=== PATIENT | male | born 1930 | race Caucasian/White ===

== ENCOUNTER 2017-12-06 23:59 | Inpatient (IN) ==
[2017-12-07] MEDS ORDERED: Post-op Orders (for Pharmacy) OTHER ONE (02:24)
[2017-12-07] MEDS ORDERED: Bisacodyl 10 MG Supp RECTAL PRN (02:24)
[2017-12-07] MEDS ORDERED: Naloxone Inj 0.4 MG/ML Vial IV.PUSH PRN (02:24)
--- NOTE | 2017-12-07 02:37 | ED ---
HPI General Chief Complaint: Fall Stated Complaint: Neck Injury/Transfer from [facility] Time Seen by Provider: 12/07/17 00:52 History of Present Illness HPI Narrative: 87 yo male from [facility] with C6 and hip fracture s/p fall at home. Patient reports falling Friday (today is Friday). He apparently was on the ground for the entire time, stating that his was unable to help him up but she brought him food and drink. Patient was seen at [facility] and transferred here. accepting physician is Dr Chavez. Related Data Home Medications Medication Instructions Recorded Confirmed clorazepate dipotassium 3.75 mg PO DAILY 12/07/17 12/07/17 ferrous sulfate [iron] 325 mg PO DAILY 12/07/17 12/07/17 hydrochlorothiazide 25 mg PO DAILY 12/07/17 12/07/17 latanoprost 1 drop EACH EYE DAILY 12/07/17 12/07/17 levothyroxine 75 mg PO DAILY 12/07/17 12/07/17 metoprolol tartrate 100 mg PO DAILY 12/07/17 12/07/17 simvastatin 10 mg PO DAILY 12/07/17 12/07/17 triamterene-hydrochlorothiazid 1 tab PO DAILY 12/07/17 12/07/17 warfarin 5 mg PO DAILY 12/07/17 12/07/17 Allergies Allergy/AdvReac Type Severity Reaction Status Date / Time No Known Allergies Allergy Verified 12/07/17 01:10 Review of Systems ROS: all other systems reviewed are negative [facility] Medical History Medical History Atrial fibrillation (Acute) Cataract (Acute) Hyperlipidemia (Acute) Hypothyroidism (Acute) Macular degeneration (Acute) Surgical History Surgical History H/O hernia repair (Acute) History of tonsillectomy (Acute) Family History Family History Other Family history of acute myocardial infarction Social History Social History Substance History: No History of Abuse Second Hand Smoke Exposure: No Smoking Status: Never smoker How Often Do You Have a Drink Containing Alcohol: 2 to 4 times a month Recent Travel in [facility] within the Last 8 Weeks: No Recent Out of Country Travel within the Last 8 Weeks: No Immunization History Tetanus Immunization: Unsure Hx Influenza Vaccine This Season: No Exam Narrative Exam Narrative: GENERAL: 87-year-old male in no distress but ill-appearing and volume depleted SKIN: Focused skin assessment warm/dry. HEAD: Atraumatic. Normocephalic. EYES: Pupils equal and round. No scleral icterus. No injection or drainage. ENT: No nasal bleeding or discharge. Mucous membranes dry and cracked. NECK: Patient was collared prehospital for previously diagnosed C6 fracture CARDIOVASCULAR: Regular rate and rhythm. No murmur appreciated. RESPIRATORY: No accessory muscle use. Clear to auscultation. Breath sounds equal bilaterally. GASTROINTESTINAL: Abdomen soft, non-tender, nondistended. Hepatic and splenic margins not palpable. MUSCULOSKELETAL: Obvious deformity to the right lower extremity he is shortened and externally rotated Course Initial Documented Vital Signs Temperature 98.4 F 12/07/17 01:06 Pulse Rate 63 12/07/17 01:06 Respiratory Rate 20 12/07/17 01:06 Blood Pressure 113/56 L 12/07/17 01:06 Pulse Oximetry 96 12/07/17 01:06 Last Documented Vital Signs Temperature 97.5 F L 12/08/17 04:00 Pulse Rate 48 L 12/08/17 04:00 Respiratory Rate 21 12/08/17 04:00 Blood Pressure 112/54 L 12/08/17 04:00 Pulse Oximetry 98 12/08/17 04:00 Medical Decision Making MDM Narrative Medical decision making narrative: Patient was seen and evaluated in the emergency department. He was accepted by Dr. Pearson and admitted to the trauma service. Lab Data Result diagrams: 12/08/17 04:39 12/07/17 13:24 Lab Results 12/07/17 12/07/17 12/07/17 Range/Units 13:24 13:24 13:24 WBC 13.6 H (4.0-11.0) th/mm3 RBC 4.12 L (4.50-5.90) mil/mm3 Hgb 12.0 L (13.0-17.0) gm/dL Hct 37.2 L (39.0-51.0) % MCV 90.3 (80.0-100.0) fL MCH 29.1 (27.0-34.0) pg MCHC 32.3 (32.0-36.0) % RDW 17.8 H (11.6-17.2) % Plt Count 449 (150-450) th/mm3 MPV 9.1 (7.0-11.0) fL Neut % (Auto) 89.9 H (16.0-70.0) % Lymph % (Auto) 1.5 L (9.0-44.0) % [place] % (Auto) 8.3 H (0.0-8.0) % Eos % (Auto) 0.1 (0.0-4.0) % Baso % (Auto) 0.2 (0.0-2.0) % Neut # (Auto) 12.2 H (1.8-7.7) th/mm3 Lymph # (Auto) 0.2 L (1.0-4.8) th/mm3 [place] # (Auto) 1.1 H (0.0-0.9) th/mm3 Eos # (Auto) 0.0 (0.0-0.4) th/mm3 Baso # (Auto) 0.0 (0.0-0.2) th/mm3 WBC Differential . Differential Comment Auto diff final Sodium 140 (136-145) meq/L Potassium 3.6 (3.5-5.1) meq/L Chloride 103 (98-107) meq/L Carbon Dioxide 27.9 (21.0-32.0) meq/L Anion Gap 9 (5-15) meq/L BUN 68 H (7-18) mg/dL Creatinine 1.57 H (0.60-1.30) mg/dL Estimated GFR 42 L (>89) mL/min Random Glucose 87 (74-106) mg/dL Calcium 8.3 L (8.5-10.1) mg/dL Total Creatine Kinase 229 (39-308) U/L 12/08/17 Range/Units 04:39 WBC 12.8 H (4.0-11.0) th/mm3 RBC 4.17 L (4.50-5.90) mil/mm3 Hgb 12.3 L (13.0-17.0) gm/dL Hct 37.7 L (39.0-51.0) % MCV 90.4 (80.0-100.0) fL MCH 29.5 (27.0-34.0) pg MCHC 32.6 (32.0-36.0) % RDW 17.6 H (11.6-17.2) % Plt Count 408 (150-450) th/mm3 MPV 9.2 (7.0-11.0) fL Neut % (Auto) 91.7 H (16.0-70.0) % Lymph % (Auto) 2.5 L (9.0-44.0) % [place] % (Auto) 5.3 (0.0-8.0) % Eos % (Auto) 0.4 (0.0-4.0) % Baso % (Auto) 0.1 (0.0-2.0) % Neut # (Auto) 11.8 H (1.8-7.7) th/mm3 Lymph # (Auto) 0.3 L (1.0-4.8) th/mm3 [place] # (Auto) 0.7 (0.0-0.9) th/mm3 Eos # (Auto) 0.1 (0.0-0.4) th/mm3 Baso # (Auto) 0.0 (0.0-0.2) th/mm3 WBC Differential . Differential Comment Auto diff final Sodium (136-145) meq/L Potassium (3.5-5.1) meq/L Chloride (98-107) meq/L Carbon Dioxide (21.0-32.0) meq/L Anion Gap (5-15) meq/L BUN (7-18) mg/dL Creatinine (0.60-1.30) mg/dL Estimated GFR (>89) mL/min Random Glucose (74-106) mg/dL Calcium (8.5-10.1) mg/dL Total Creatine Kinase (39-308) U/L Imaging Data Radiologist's impression: Chest X-Ray 12/07/17 00:00 CONCLUSION: Small right basilar opacity likely representing pleural effusion with airspace consolidation. Discharge Plan Discharge Disposition Patient Disposition: 30 Still Patient Discharge Condition Condition: Stable Discharge Details Diagnosis: Rhabdomyolysis, Closed hip fracture, Dehydration Physicians Team ED Provider: Betty Parker Primary Care Provider: NON STAFF,PROVIDER Attending Provider: Jason Chavez Other Providers: ; Willie Bateman ; Kaushal Soliz ; Rudi Ortez ; Johann Silverman ; [employer] ; Kaleb Pang ; Farida Godinez ; Nba Swain ; Terra Booker ; Jason Chavez ; Maci Omer ; Shay Vincent Discharge Interventions Interventions: ED Discharge Assessment Last Done: 12/07/17 03:38 Vital Signs Last Done: 12/07/17 02:20 Status ED Status: Left Department Discharge Information Discharge Date/Time: 12/07/17 03:38
--- NOTE | 2017-12-07 03:11 | XR ---
EXAM DATE: 12/07/2017 2:59 AM EDT AGE/SEX: 87 years / Male INDICATIONS: Patient fell earlier today. Evaluate for pneumonia, pneumothorax or communicable diseas e. Pre op for hip surgery. CLINICAL DATA: This is the patient's initial encounter. Patient reports that signs and symptoms have been present for 1 day and indicates a pain score of 0/10. MEDICAL/SURGICAL HISTORY: None. None. COMPARISON: No prior exams available for comparison. FINDINGS: 2 AP views of the chest demonstrate a normal-sized cardiac silhouette with calcification of the aorta . Lungs are underinflated. There is a small right basilar pleural-parenchymal opacity. No pneumothora x is visualized. The bones and soft tissues demonstrate no acute abnormality. CONCLUSION: Small right basilar opacity likely representing pleural effusion with airspace consolidation. Electronically signed by: Orlando Handy MD 12/07/2017 3:09 AM EDT
[2017-12-07] MEDS: Sod Chloride 0.9% Inj 1,000 ML IV.CONT SCH ×2 (04:04→13:22)
[2017-12-07] MEDS: ceFAZolin Inj 1,000 MG in Sodium Chlor 0.9% Inj 100 ML IV.SIG SCH ×3 (05:43→19:47)
[2017-12-07] MEDS: Senna/Docusate Sodium 8.6/50 MG Tablet PO SCH ×2 (09:24→22:16)
--- NOTE | 2017-12-07 09:31 | P.CON ---
History of Present Illness Consult date: 12/07/17 Requesting Physician: Jason Chavez Reason for Consult: Medical Management Primary Care Provider: PROVIDER NON STAFF Family Provider: PROVIDER NON STAFF Chief Complaint: Transfer from [facility] History of Present Illness: This is a pleasant 87 y/o male transferred from [facility] after status post fall he was at home on the floor fed by his , and he got a pillow and was laying there hoping for the best to happen, until decided to call 911 he has multiple ecchymosis on both arms and legs, has Sacral ulcer II, Elbows, right heel, both bottom areas on his buttocks II, awaiting for evaluation by spine specialist, has Not found Lumbar 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 Doctor Jason Chavez also present, Orthopedic surgery has been consulted due to for Mildly displaced transcervical Right hip fracture. at this time also Swallow test is been conducted. Discussed with nurse Miss Mak. Review of Systems All other systems reviewed negative except as stated in HPI PMFSH - History History Provided By: Patient - Medical History Medical History: Medical History (Last Updated 12/07/17 @ 09:45 by Kaushal Soliz MD) Atrial fibrillation Cataract Hyperlipidemia Hypothyroidism - Surgical History Surgical History: Surgical History (Last Updated 12/07/17 @ 09:45 by Kaushal Soliz MD) H/O hernia repair History of tonsillectomy - Family History Family History: Family History (Last Updated 12/07/17 @ 09:45 by aKushal Soliz MD) Other Family history of acute myocardial infarction - Tobacco History Second Hand Smoke Exposure: No Tobacco Use In Past 30 Days: No Smoking Status: Never smoker - Alcohol History How Often Do You Have a Drink Containing Alcohol: Never - Substance Use History Substance History: No History of Abuse - Travel History Recent Travel in the [place] Within the Last 8 Weeks: No Recent Travel Out of the Country Within the Last 8 Weeks: No - Immunization History Tetanus Immunization: Unsure Hx Influenza Vaccine This Season: No Medications and Allergies Active Medications: Active Medications Al Hydroxide/Mg Hydroxide (Milk Of Magnesia Liq) 30 ml PO Q12H PRN PRN Reason: Mild Constipation Bisacodyl (Dulcolax Supp) 10 mg RECTAL DAILY PRN PRN Reason: SEVERE CONSITIPATION Enoxaparin Sodium (Lovenox Inj) 40 mg SQ Q24H [facility] Fentanyl (Duragesic 25 Mcg Patch.72hr) 1 patch T-DERMAL Q3D [facility] Last Admin: 12/07/17 04:01 Dose: Not Given Cefazolin Sodium 1,000 mg/ (Sodium Chloride) 100 mls @ 200 mls/hr IV.SIG Q8H [facility] Stop: 12/07/17 20:29 Last Infusion: 12/07/17 06:30 Dose: Infused Metronidazole/Sodium Chloride (Flagyl 500 Mg Inj) 100 mls @ 200 mls/hr IV.SIG Q8H [facility] Stop: 12/07/17 21:29 Last Infusion: 12/07/17 06:40 Dose: Infused Sodium Chloride (Ns Inj) 1,000 mls @ 100 mls/hr IV.CONT .Q10H [facility] Last Admin: 12/07/17 04:04 Dose: 100 mls/hr Lactulose (Lactulose Liq) 30 ml PO DAILY PRN PRN Reason: SEVERE CONSITIPATION Naloxone HCl (Narcan Inj) 0.4 mg IV.PUSH UNSCH PRN PRN Reason: SEE LABEL COMMENTS Ondansetron HCl (Zofran Inj) 4 mg IV.PUSH Q6H PRN PRN Reason: NAUSEA OR VOMITING Oxycodone/Acetaminophen (Percocet 5/325 Mg) 1 tab PO Q6H PRN PRN Reason: PAIN SCALE 3 TO 5 Last Admin: 12/07/17 03:59 Dose: 1 tab Pantoprazole Sodium (Protonix) 40 mg PO DAILY [facility] Last Admin: 12/07/17 09:24 Dose: 40 mg Patch Removal (Remove Old Patch) 1 each T-DERMAL Q3D [facility] Senna/Docusate Sodium (Kiara-Colace) 1 tab PO BID [facility] Last Admin: 12/07/17 09:24 Dose: 1 tab Sennosides (Senokot) 17.2 mg PO Q12H PRN PRN Reason: Moderate Constipation Allergies Allergy/AdvReac Type Severity Reaction Status Date / Time No Known Allergies Allergy Verified 12/07/17 01:10 Home Medications Medication Instructions Recorded Confirmed Type clorazepate dipotassium 3.75 mg PO DAILY 12/07/17 12/07/17 History ferrous sulfate [iron] 325 mg PO DAILY 12/07/17 12/07/17 History hydrochlorothiazide 25 mg PO DAILY 12/07/17 12/07/17 History latanoprost 1 drop EACH EYE DAILY 12/07/17 12/07/17 History levothyroxine 75 mg PO DAILY 12/07/17 12/07/17 History metoprolol tartrate 100 mg PO DAILY 12/07/17 12/07/17 History simvastatin 10 mg PO DAILY 12/07/17 12/07/17 History warfarin 5 mg PO DAILY 12/07/17 12/07/17 History Physical Exam Vital signs: Vital Signs 12/07/17 01:06 12/07/17 02:20 12/07/17 04:00 Temperature 98.4 F 97.8 F Pulse Rate 63 51 L 56 L Respiratory Rate 20 16 16 Blood Pressure 113/56 L 117/56 L 107/53 L Pulse Oximetry 96 97 98 Intake & Output 12/06/17 12/07/17 12/07/17 18:59 06:59 18:59 Intake Total 200 / 200 Balance 200 / 200 Weight 67.5 kg Intake: IV 200 / 200 Ancef Inj 1,000 MG In NS Inj 100 / 100 100 ML @ 200 mls/hr IV.SIG Q8H [facility] Rx#:[id number] Flagyl 500 MG Inj 100 ML @ 200 100 / 100 mls/hr IV.SIG Q8H [facility] Rx#: [id number] Other: # Voids 1 Weight On Admission 67.5 kg Narrative: GENERAL: Well-developed patient, in no apparent distress. alert and oriented x 3 NECK: Hard Collar in place CARDIOVASCULAR: Irregular rate and rhythm . no murmur. RESPIRATORY: Clear to auscultation. Breath sounds equal bilaterally. No wheezes , rales, or rhonchi. GASTROINTESTINAL: Abdomen soft, non-tender, nondistended. Normal active bowel sounds MUSCULOSKELETAL: Extremities without clubbing, cyanosis, or edema. NEURO: Alert & Oriented x4 to person, place, time, situation. Moves all ext x4 SKIN: multiple skin ecchymosis on all extremities, ulcer to buttocks, sacral area, right heel and elbows. Assessment and Plan - Plan 1. Status post fall with secondary Horizontally oriented comminuted fracture extending on the superior aspect of the C6 vertebral body, disruption of the anterior longitudinal ligament and interspinous ligament injury, at this time Neurosurgery specialist [place] to see the patient reviewing imaging studies performed Doctor Shay Vincent. Also Present at this time Doctor Jason Chavez, Orthopedic surgery has been consulted due to for Mildly displaced transcervical Right hip fracture. 2. Hypothyroidism to continue Hormonal therapy 3. Atrial Fibrillation on Warfarin at this time on hold due to probable procedure, rate is controlled and Bradycardia, will continue Beta Silverio with recommendations. 4. Hyperlipidemia continue Home medicines. DVT prophylaxis with SCDs awaiting for final surgical disposition. Code Status: Full code Discussed Condition With: Discussed with Patient Discussed with Speech therapy Discussed with Neurosurgery specialist Doctor Shay Vincent. Discussed with Attending physician Doctor Jason Chavez. Discharge Planning: Once cleared by specialists.
--- NOTE | 2017-12-07 10:29 | P.CONOP ---
[facility] Orthopedics Consult Note - HPI Consult date: 12/07/17 Consult reason: fracture Chief complaint: hip fracture, c6 fracture, rhabdomyolysis, JOHN Narrative: This is a pleasant 87 y/o male transferred from [facility] after status post fall he was at home on the floor found by his . Patient was transferred with C6 fracture along with right hip fracture. Clinically, patient is awake and complains of mild neck discomfort and right hip pain with movement. He denies any other extremity injury. He does report he is currently on Coumadin. INR at [facility] was 5.1. Of note, pt has Sacral ulcer stage II, Elbows, right heel, both bottom areas on his buttocks II, awaiting for evaluation by grant specialist Review of Systems Denies fevers, chills, nausea, vomiting, chest pain, abdominal pain, throat pain. Reports mild neck discomfort. Denies any weakness, numbness or tingling that is new. Denies any change in urination. Reports right hip pain with movement. Denies rash or anxiety. [facility] - History History Provided By: Patient - Medical History Medical History: Medical History (Last Updated 12/07/17 @ 09:45 by Kaushal Soliz MD) Atrial fibrillation Cataract Hyperlipidemia Hypothyroidism - Surgical History Surgical History: Surgical History (Last Updated 12/07/17 @ 09:45 by Kaushal Soliz MD) H/O hernia repair History of tonsillectomy - Family History Family History: Family History (Last Updated 12/07/17 @ 09:45 by Kaushal Soliz MD) Other Family history of acute myocardial infarction - Tobacco History Second Hand Smoke Exposure: No Tobacco Use In Past 30 Days: No Smoking Status: Never smoker - Alcohol History How Often Do You Have a Drink Containing Alcohol: Never - Substance Use History Substance History: No History of Abuse - Travel History Recent Travel in the [place] Within the Last 8 Weeks: No Recent Travel Out of the Country Within the Last 8 Weeks: No - Immunization History Tetanus Immunization: Unsure Hx Influenza Vaccine This Season: No Medications and Allergies Active Medications: Active Medications Al Hydroxide/Mg Hydroxide (Milk Of Magnmarci Liq) 30 ml PO Q12H PRN PRN Reason: Mild Constipation Bisacodyl (Dulcolax Supp) 10 mg RECTAL DAILY PRN PRN Reason: SEVERE CONSITIPATION Cetirizine HCl (Zyrtec) 10 mg PO BID [facility] Enoxaparin Sodium (Lovenox Inj) 40 mg SQ Q24H [facility] Cefazolin Sodium 1,000 mg/ (Sodium Chloride) 100 mls @ 200 mls/hr IV.SIG Q8H [facility] Stop: 12/07/17 20:29 Last Infusion: 12/07/17 06:30 Dose: Infused Metronidazole/Sodium Chloride (Flagyl 500 Mg Inj) 100 mls @ 200 mls/hr IV.SIG Q8H [facility] Stop: 12/07/17 21:29 Last Infusion: 12/07/17 06:40 Dose: Infused Sodium Chloride (Ns Inj) 1,000 mls @ 100 mls/hr IV.CONT .Q10H [facility] Last Admin: 12/07/17 04:04 Dose: 100 mls/hr Lactulose (Lactulose Liq) 30 ml PO DAILY PRN PRN Reason: SEVERE CONSITIPATION Naloxone HCl (Narcan Inj) 0.4 mg IV.PUSH UNSCH PRN PRN Reason: SEE LABEL COMMENTS Ondansetron HCl (Zofran Inj) 4 mg IV.PUSH Q6H PRN PRN Reason: NAUSEA OR VOMITING Oxycodone/Acetaminophen (Percocet 5/325 Mg) 1 tab PO Q6H PRN PRN Reason: PAIN SCALE 3 TO 5 Last Admin: 12/07/17 03:59 Dose: 1 tab Pantoprazole Sodium (Protonix) 40 mg PO DAILY [facility] Last Admin: 12/07/17 09:24 Dose: 40 mg Senna/Docusate Sodium (Kiara-Colace) 1 tab PO BID [facility] Last Admin: 12/07/17 09:24 Dose: 1 tab Sennosides (Senokot) 17.2 mg PO Q12H PRN PRN Reason: Moderate Constipation Allergies Allergy/AdvReac Type Severity Reaction Status Date / Time No Known Allergies Allergy Verified 12/07/17 01:10 Home Medications Medication Instructions Recorded Confirmed Type levothyroxine See Label Instructions .ROUTE 12/07/17 12/07/17 History .COMPLEX metoprolol tartrate See Label Instructions .ROUTE 12/07/17 12/07/17 History .COMPLEX simvastatin See Label Instructions .ROUTE 12/07/17 12/07/17 History .COMPLEX warfarin 5 mg PO DAILY 12/07/17 12/07/17 History Exam Vital signs: Vital Signs 12/07/17 01:06 12/07/17 02:20 12/07/17 04:00 Temperature 98.4 F 97.8 F Pulse Rate 63 51 L 56 L Respiratory Rate 20 16 16 Blood Pressure 113/56 L 117/56 L 107/53 L Pulse Oximetry 96 97 98 Intake & Output 12/06/17 12/07/17 12/07/17 18:59 06:59 18:59 Intake Total 200 / 200 Balance 200 / 200 Weight 67.5 kg Intake: IV 200 / 200 Ancef Inj 1,000 MG In NS Inj 100 / 100 100 ML @ 200 mls/hr IV.SIG Q8H [facility] Rx#:[id number] Flagyl 500 MG Inj 100 ML @ 200 100 / 100 mls/hr IV.SIG Q8H [facility] Rx#: [id number] Other: # Voids 1 Weight On Admission 67.5 kg Narrative: Awake, alert, no acute distress C-collar in place. Pupils equal No JVD Moist mucous membranes Regular rate Soft nontender abdomen Nonlabored respirations Right lower extremity: Positive logroll. Unable to assess hip and knee range of motion due to pain. Patient demonstrates positive EHL, FHL, dorsiflexion and plantarflexion. Sensation appears grossly intact. Brisk cap refill. Bilateral upper extremities and left lower extremity: No tenderness palpation or visible deformities. Full active range of motion and strength throughout. Sensation intact. Brisk cap refill. No rash Normal affect Results - Diagnostic results Imaging: Impressions Chest X-Ray 12/07/17 00:00 CONCLUSION: Small right basilar opacity likely representing pleural effusion with airspace consolidation. Assessment and Plan - Assessment and Plan 87-year-old male transferred from [facility] with C6 fracture and a right transcervical femoral neck fracture At this time, patient has been seen and evaluated by neurosurgery. It appears plan is for nonoperative intervention in a c-collar. I reviewed radiographs with the patient in regards to his right hip fracture. At this time I would recommend surgical intervention in the form of a right hip hemiarthroplasty. Risks of surgery including but not limited to: Infection, hardware malposition or failure, periprosthetic fracture, hip instability and/or dislocation, persistent hip pain and/or weakness, possible need for further surgery, leg length discrepancy, and other unforeseen comp occasions were all discussed with the patient. At this time, he has consented to the above-mentioned procedure. Plan will be for surgery likely in the next 1-2 days as his INR was 5.1 overnight. Patient will be n.p.o. at midnight for possible surgery tomorrow. Neurosurgery has seen and evaluated the patient. Plan is for nonoperative treatment for his neck injury.
--- NOTE | 2017-12-07 12:29 | P.CONNS ---
History of Present Illness Primary Care Provider: PROVIDER NON STAFF Family Provider: PROVIDER NON STAFF Chief Complaint: C6 vertebral body fracture History of Present Illness: Mr. Henderson is an 87 y/o male on coumadin for atrial fibrillation who had a fall on 12/02. He remained laying on the floor, unable to ambulate for several days until his called EMS. He was transported to an outside hospital where CT of the cervical spine demonstrated a horizontal comminuted fracture through the C6 vertebral body and a right hip fracture. He was transferred here for further evaluation and management. Mr. Henderson endorses moderate neck pain. Denies numbness, paresthesias, weakness , bowel or bladder incontinence. Non-smoker. Review of Systems All other systems reviewed negative except as stated in HPI PMFSH - History History Provided By: Patient - Medical History Medical History: Medical History (Last Updated 12/07/17 @ 09:45 by Kaushal Soliz MD) Atrial fibrillation Cataract Hyperlipidemia Hypothyroidism - Surgical History Surgical History: Surgical History (Last Updated 12/07/17 @ 09:45 by Kaushal Soliz MD) H/O hernia repair History of tonsillectomy - Family History Family History: Family History (Last Updated 12/07/17 @ 09:45 by Kaushal Soliz MD) Other Family history of acute myocardial infarction - Tobacco History Second Hand Smoke Exposure: No Tobacco Use In Past 30 Days: No Smoking Status: Never smoker - Alcohol History How Often Do You Have a Drink Containing Alcohol: Never - Substance Use History Substance History: No History of Abuse - Travel History Recent Travel in the [place] Within the Last 8 Weeks: No Recent Travel Out of the Country Within the Last 8 Weeks: No - Immunization History Tetanus Immunization: Unsure Hx Influenza Vaccine This Season: No Medications and Allergies Active Medications: Active Medications Al Hydroxide/Mg Hydroxide (Milk Of Collins Liq) 30 ml PO Q12H PRN PRN Reason: Mild Constipation Bisacodyl (Dulcolax Supp) 10 mg RECTAL DAILY PRN PRN Reason: SEVERE CONSITIPATION Cetirizine HCl (Zyrtec) 10 mg PO BID KETTY Enoxaparin Sodium (Lovenox Inj) 40 mg SQ Q24H KETTY Cefazolin Sodium 1,000 mg/ (Sodium Chloride) 100 mls @ 200 mls/hr IV.SIG Q8H KETTY Stop: 12/07/17 20:29 Last Infusion: 12/07/17 06:30 Dose: Infused Metronidazole/Sodium Chloride (Flagyl 500 Mg Inj) 100 mls @ 200 mls/hr IV.SIG Q8H [facility] Stop: 12/07/17 21:29 Last Infusion: 12/07/17 06:40 Dose: Infused Sodium Chloride (Ns Inj) 1,000 mls @ 100 mls/hr IV.CONT .Q10H [facility] Last Admin: 12/07/17 04:04 Dose: 100 mls/hr Lactulose (Lactulose Liq) 30 ml PO DAILY PRN PRN Reason: SEVERE CONSITIPATION Naloxone HCl (Narcan Inj) 0.4 mg IV.PUSH UNSCH PRN PRN Reason: SEE LABEL COMMENTS Ondansetron HCl (Zofran Inj) 4 mg IV.PUSH Q6H PRN PRN Reason: NAUSEA OR VOMITING Oxycodone/Acetaminophen (Percocet 5/325 Mg) 1 tab PO Q6H PRN PRN Reason: PAIN SCALE 3 TO 5 Last Admin: 12/07/17 03:59 Dose: 1 tab Oxycodone/Acetaminophen (Percocet 7.5/325 Mg) 1 tab PO Q4H PRN PRN Reason: PAIN SCALE 6 TO 10 Pantoprazole Sodium (Protonix) 40 mg PO DAILY [facility] Last Admin: 12/07/17 09:24 Dose: 40 mg Senna/Docusate Sodium (Kiara-Colace) 1 tab PO BID [facility] Last Admin: 12/07/17 09:24 Dose: 1 tab Sennosides (Senokot) 17.2 mg PO Q12H PRN PRN Reason: Moderate Constipation Allergies Allergy/AdvReac Type Severity Reaction Status Date / Time No Known Allergies Allergy Verified 12/07/17 01:10 Home Medications Medication Instructions Recorded Confirmed Type levothyroxine See Label Instructions .ROUTE 12/07/17 12/07/17 History .COMPLEX metoprolol tartrate See Label Instructions .ROUTE 12/07/17 12/07/17 History .COMPLEX simvastatin See Label Instructions .ROUTE 12/07/17 12/07/17 History .COMPLEX warfarin 5 mg PO DAILY 12/07/17 12/07/17 History Exam Vital signs: Vital Signs 12/07/17 01:06 12/07/17 02:20 12/07/17 04:00 Temperature 98.4 F 97.8 F Pulse Rate 63 51 L 56 L Respiratory Rate 20 16 16 Blood Pressure 113/56 L 117/56 L 107/53 L Pulse Oximetry 96 97 98 12/07/17 08:00 12/07/17 10:00 Temperature 97.6 F Pulse Rate 44 L 56 L Respiratory Rate 19 Blood Pressure 95/51 L Pulse Oximetry 100 Intake & Output 12/06/17 12/07/17 12/07/17 18:59 06:59 18:59 Intake Total 200 / 200 Balance 200 / 200 Weight 67.5 kg Intake: IV 200 / 200 Ancef Inj 1,000 MG In NS Inj 100 / 100 100 ML @ 200 mls/hr IV.SIG Q8H KETTY Rx#:[id number] Flagyl 500 MG Inj 100 ML @ 200 100 / 100 mls/hr IV.SIG Q8H KETTY Rx#: [id number] Other: # Voids 1 Weight On Admission 67.5 kg - Constitutional no acute distress - Routine HEENT Exam Head: Present: normocephalic Eye: Present: EOMI, PERRL ENT: Present: mucous membranes moist - Routine Neck Exam Present: supple - Routine Chest/Breast/Axilla Exam Chest wall: Absent: tenderness - Routine Respiratory Exam Absent: respiratory distress - Routine Cardiovascular Exam Present: irregular rhythm - Routine Abdominal Exam Present: soft - Routine Extremities Exam Present: normal capillary refill - Routine Skin Exam Present: ecchymosis - Routine Neurological Exam Present: alert, oriented X3. Absent: sensory deficit 5/5 strength bilateral upper extremities, left lower extremity Right lower extremity pain limited due to hip fracture, anti-gravity distally Results - Diagnostic Findings Additional findings: CT cervical spine: Horizontal fracture through the C6 vertebral body. No evidence of involvement of the posterior elements. Chronic degenerative changes at multiple levels. CT head: no evidence of intracranial pathology. Assessment and Plan - Assessment (1) C6 cervical fracture Code(s): S12.500A - Unspecified displaced fracture of sixth cervical vertebra, initial encounter for closed fracture Status: Acute - Plan Mr. Henderson is an 87 y/o male who had a fall on 12/02. He is neurologically intact. He presented via EMS to an outside hospital on 12/06. Trauma evaluation demonstrates a two column injury C6 fracture. Plan: [place] J cervical collar at all times. He is a non-operative candidate from a neurosurgical perspective given his significant medical co-morbidities, advanced age, and need for prolonged general anesthesia for any neurosurgical operative intervention. No need for cervical MRI given that the results would not affect management and the acquisition would involve moving him more than is necessary. Orthopedic surgery may perform an intervention for his right hip fracture. Intraoperatively, he should be log rolled into position and his cervical spine should be maintained in neutral alignment with cervical collar. If possible, would avoid endotracheal intubation in order to minimize neck movement. His cervical fracture is unstable and could result in spinal cord injury with manipulation of his neck. (1) C6 cervical fracture Qualifiers: Encounter type: initial encounter Fracture type: closed Fracture morphology : other fracture Fracture alignment: displaced Qualified Code(s): S12.590A - Other displaced fracture of sixth cervical vertebra, initial encounter for closed fracture
--- NOTE | 2017-12-07 13:28 | P.PNCC ---
Subjective Brief History: 87-year-old male sustained a fall under unknown circumstances at home on Friday and was transferred to another hospital. I received a call requesting transfer the patient tolerate institution due to the nature of the injuries and patient arrives here in the early hours of the morning. Patient is awake and alert complaining about pain in his right hip and pelvis Patient is diagnosed with right hip fracture and C6 fracture He is neurologically intact Patient is admitted to ICU for further care details of this can be found in the H&P 24 Hour Review/Hospital Course: 12/07/2017 Patient is awake alert and oriented pain is well controlled Patient appears to be quite cachectic and weak Orthopedic consult is greatly appreciated Neurosurgery consult is greatly appreciated Patient scheduled to undergo pinning of the right hip while the see 6 fracture will be managed conservatively with a c-collar Patient will be a fdc placement Objective Vital Signs / I&O: Vital Signs 12/07/17 01:06 12/07/17 02:20 12/07/17 04:00 Temperature 98.4 F 97.8 F Pulse Rate 63 51 L 56 L Respiratory Rate 20 16 16 Blood Pressure 113/56 L 117/56 L 107/53 L Pulse Oximetry 96 97 98 12/07/17 08:00 12/07/17 10:00 Temperature 97.6 F Pulse Rate 44 L 56 L Respiratory Rate 19 Blood Pressure 95/51 L Pulse Oximetry 100 Intake & Output 12/06/17 12/07/17 12/07/17 18:59 06:59 18:59 Intake Total 200 / 200 1000 / 1000 Balance 200 / 200 1000 / 1000 Weight 67.5 kg Intake: IV 200 / 200 1000 / 1000 NS Inj 1,000 ML @ 100 mls/hr IV 1000 / 1000 .CONT .Q10H KETTY Rx#:[id number] Ancef Inj 1,000 MG In NS Inj 100 / 100 100 ML @ 200 mls/hr IV.SIG Q8H KETTY Rx#:[id number] Flagyl 500 MG Inj 100 ML @ 200 100 / 100 mls/hr IV.SIG Q8H KETTY Rx#: [id number] Other: # Voids 1 Weight On Admission 67.5 kg Imaging: Impressions Chest X-Ray 12/07/17 00:00 CONCLUSION: Small right basilar opacity likely representing pleural effusion with airspace consolidation. Disinhibition Score: 14.00 Aggression Score: 14.00 Lability Score: 14.00 Agitated Behavior Total Score: 14 - Exam PATENT PROSECUTION ATTORNEY: Awake alert oriented neurologically fully intact Hemodynamic/Cardiac: Hemodynamically patient is stable although he had several periods of bradycardia throughout the night with a heart rate dropped in the 30s 40s range without change in blood pressure Patient is in chronic atrial fibrillation and I do not know which medication he is on but clearly there must be some beta blockers and calcium channel blockers involved In addition patient is on Coumadin and INR PT is elevated consistent with over anticoagulation Clearly patient cannot go to the operating room for hip fixation until the PT/ INR comes down Pulmonary/Respiratory: Bilateral good breath sounds decreased over the both lung kent patient has severe advanced COPD and pulmonary cachexia with the chest wall musculature loss He generally appears to be cachectic and weak with significant functional decline Abdomen/GI Nutrition: Abdomen is soft patulous no masses are noted Renal/I&O: Renal function preserved Assessment and Plan Attestation: Critical care time 32 minutes
[2017-12-07 13:53] LABS: Baso % (Auto) 0.2 % (0.0-2.0); Eos % (Auto) 0.1 % (0.0-4.0); Hematocrit 37.2 % (39.0-51.0); Lymph # (Auto) 0.2 th/mm3 (1.0-4.8); Lymph % (Auto) 1.5 % (9.0-44.0); Mean Corpuscular HGB Conc 32.3 % (32.0-36.0); Mean Corpuscular Hemoglobin 29.1 pg (27.0-34.0); Mean Corpuscular Volume 90.3 fL (80.0-100.0); Mean Platelet Volume 9.1 fL (7.0-11.0); Mono # (Auto) 1.1 th/mm3 (0.0-0.9); Mono % (Auto) 8.3 % (0.0-8.0); Neut # (Auto) 12.2 th/mm3 (1.8-7.7); Neut % (Auto) 89.9 % (16.0-70.0); Platelet Count 449 th/mm3 (150-450); Red Blood Count 4.12 mil/mm3 (4.50-5.90); Red Cell Distribution Width 17.8 % (11.6-17.2); White Blood Count 13.6 th/mm3 (4.0-11.0)
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
[2017-12-07 14:14] LABS: Calcium 8.3 mg/dL (8.5-10.1); Carbon Dioxide 27.9 meq/L (21.0-32.0)
[2017-12-07 14:45] LABS: Potassium 3.6 meq/L (3.5-5.1)
[2017-12-07] MEDS ORDERED: Metoprolol Tartrate 25 MG Tablet PO SCH (21:00)
[2017-12-08] MEDS: Sod Chloride 0.9% Inj 1,000 ML IV.CONT SCH ×3 (00:30→20:20)
[2017-12-08] MEDS ORDERED: Enoxaparin Inj 40 MG/0.4 ML Syringe SQ SCH (01:00)
[2017-12-08 05:45] LABS: Baso % (Auto) 0.1 % (0.0-2.0); Eos # (Auto) 0.1 th/mm3 (0.0-0.4); Eos % (Auto) 0.4 % (0.0-4.0); Hematocrit 37.7 % (39.0-51.0); Hemoglobin 12.3 gm/dL (13.0-17.0); Lymph # (Auto) 0.3 th/mm3 (1.0-4.8); Lymph % (Auto) 2.5 % (9.0-44.0); Mean Corpuscular HGB Conc 32.6 % (32.0-36.0); Mean Corpuscular Hemoglobin 29.5 pg (27.0-34.0); Mean Corpuscular Volume 90.4 fL (80.0-100.0); Mean Platelet Volume 9.2 fL (7.0-11.0); Mono # (Auto) 0.7 th/mm3 (0.0-0.9); Mono % (Auto) 5.3 % (0.0-8.0); Neut # (Auto) 11.8 th/mm3 (1.8-7.7); Neut % (Auto) 91.7 % (16.0-70.0); Platelet Count 408 th/mm3 (150-450); Red Blood Count 4.17 mil/mm3 (4.50-5.90); Red Cell Distribution Width 17.6 % (11.6-17.2); White Blood Count 12.8 th/mm3 (4.0-11.0)
[2017-12-08 05:49] LABS: INR 5.7 Ratio; Prothrombin Time 57.3 sec (9.8-11.6)
[2017-12-08 06:12] LABS: Albumin 2.6 g/dL (3.4-5.0); Calcium 8.4 mg/dL (8.5-10.1); Carbon Dioxide 28.5 meq/L (21.0-32.0); Potassium 3.4 meq/L (3.5-5.1)
[2017-12-08 06:15] LABS: Total Protein 5.9 g/dL (6.4-8.2)
[2017-12-08] MEDS: Levothyroxine 75 MCG Tablet PO SCH (06:50)
--- NOTE | 2017-12-08 08:26 | P.PN ---
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 Doctor Jason Chavze also present, Orthopedic surgery has been consulted due to for Mildly displaced transcervical Right hip fracture. at this time also Swallow test is been conducted. 12/08: Seen in his bedroom and discussed with nurse called attention about his INR and orders from Orthopedic surgery already given to improve his INR for surgery. No nausea, vomit or diarrhea. Physical Exam Vital signs: Vital Signs 12/07/17 10:00 12/07/17 12:00 12/07/17 14:00 Temperature 97.9 F Pulse Rate 56 L 46 L 47 L Respiratory Rate 16 Blood Pressure 95/49 L Pulse Oximetry 98 12/07/17 16:00 12/07/17 18:00 12/07/17 20:00 Temperature 97.6 F 97.8 F Pulse Rate 50 L 58 L 66 Respiratory Rate 18 Blood Pressure 120/52 L 137/61 Pulse Oximetry 100 100 12/07/17 22:00 12/08/17 00:00 12/08/17 02:00 Temperature 97.5 F L Pulse Rate 51 L 54 L 55 L Respiratory Rate 21 Blood Pressure 100/53 L Pulse Oximetry 98 12/08/17 04:00 12/08/17 06:00 Temperature 97.5 F L Pulse Rate 48 L 74 Respiratory Rate 21 Blood Pressure 112/54 L Pulse Oximetry 98 Intake & Output 12/07/17 12/08/17 12/08/17 18:59 06:59 18:59 Intake Total 1320 / 1320 1525 / 1525 Output Total 750 / 750 450 / 450 Balance 570 / 570 1075 / 1075 Weight 69.4 kg Intake: IV 1200 / 1200 1045 / 1045 NS Inj 1,000 ML @ 100 mls/hr IV 1000 / 1000 845 / 845 .CONT .Q10H KETTY Rx#:[id number] Ancef Inj 1,000 MG In NS Inj 100 / 100 100 / 100 100 ML @ 200 mls/hr IV.SIG Q8H KETTY Rx#:[id number] Flagyl 500 MG Inj 100 ML @ 200 100 / 100 100 / 100 mls/hr IV.SIG Q8H KETTY Rx#: [id number] Oral 120 / 120 480 / 480 Output: Urine 450 / 450 Urine Amount (Catheter) 750 / 750 Condom 750 / 750 Other: # Bowel Movements 0 0 Narrative: GENERAL: Well-developed patient, in no apparent distress. alert and oriented x 3 NECK: Hard Collar in place CARDIOVASCULAR: Irregular rate and rhythm . no murmur. RESPIRATORY: Clear to auscultation. Breath sounds equal bilaterally. No wheezes , rales, or rhonchi. GASTROINTESTINAL: Abdomen soft, non-tender, nondistended. Normal active bowel sounds MUSCULOSKELETAL: Extremities without clubbing, cyanosis, or edema. NEURO: Alert & Oriented x4 to person, place, time, situation. Moves all ext x4 SKIN: multiple skin ecchymosis on all extremities, ulcer to buttocks, sacral area, right heel and elbows. - Urinary Catheter Management Condom Cath placed during this visit: no Results - Labs CBC & Chem 7: 12/09/17 03:40 12/09/17 03:40 Laboratory Results - last 24 hr 12/07/17 12/07/17 12/07/17 13:24 13:24 13:24 WBC 13.6 H RBC 4.12 L Hgb 12.0 L Hct 37.2 L MCV 90.3 MCH 29.1 MCHC 32.3 RDW 17.8 H Plt Count 449 MPV 9.1 Neut % (Auto) 89.9 H Lymph % (Auto) 1.5 L Barnwell % (Auto) 8.3 H Eos % (Auto) 0.1 Baso % (Auto) 0.2 Neut # (Auto) 12.2 H Lymph # (Auto) 0.2 L Barn[place] # (Auto) 1.1 H Eos # (Auto) 0.0 Baso # (Auto) 0.0 WBC Differential . Differential Comment Auto diff final PT INR Sodium 140 Potassium 3.6 Chloride 103 Carbon Dioxide 27.9 Anion Gap 9 BUN 68 H Creatinine 1.57 H Estimated GFR 42 L Random Glucose 87 Calcium 8.3 L Total Bilirubin Direct Bilirubin Indirect Bilirubin AST ALT Alkaline Phosphatase Total Creatine Kinase 229 Total Protein Albumin 12/08/17 12/08/17 12/08/17 04:39 04:39 04:39 WBC 12.8 H RBC 4.17 L Hgb 12.3 L Hct 37.7 L MCV 90.4 MCH 29.5 MCHC 32.6 RDW 17.6 H Plt Count 408 MPV 9.2 Neut % (Auto) 91.7 H Lymph % (Auto) 2.5 L Barn[place] % (Auto) 5.3 Eos % (Auto) 0.4 Baso % (Auto) 0.1 Neut # (Auto) 11.8 H Lymph # (Auto) 0.3 L Barn[place] # (Auto) 0.7 Eos # (Auto) 0.1 Baso # (Auto) 0.0 WBC Differential . Differential Comment Auto diff final PT 57.3 H INR 5.7 Sodium 144 Potassium 3.4 L Chloride 107 Carbon Dioxide 28.5 Anion Gap 9 BUN 58 H Creatinine 1.38 H Estimated GFR 49 L Random Glucose 93 Calcium 8.4 L Total Bilirubin 1.0 Direct Bilirubin 0.4 H Indirect Bilirubin 0.6 AST 32 ALT 32 Alkaline Phosphatase 93 Total Creatine Kinase Total Protein 5.9 L Albumin 2.6 L Assessment and Plan - Plan 1. Status post fall with secondary Horizontally oriented comminuted fracture extending on the superior aspect of the C6 vertebral body, disruption of the anterior longitudinal ligament and interspinous ligament injury, at this time Neurosurgery specialist [place] to see the patient reviewing imaging studies performed Doctor Shay Vincent. Also Present at this time Doctor Jason Chavez, Orthopedic surgery has been consulted due to for Mildly displaced transcervical Right hip fracture. recommended for surgery tomorrow started management to control his INR FFP two units and Vitamin K given. 2. Hypothyroidism to continue Hormonal therapy 3. Atrial Fibrillation on Warfarin at this time on hold due to probable procedure, rate is controlled and Bradycardia, Discontinued Beta blockers and following. 4. Hyperlipidemia continue Home medicines. Add Zinc, Vitamin C, Nutrition consult and PT consult. DVT prophylaxis with SCDs awaiting for final surgical disposition. Code Status: Full Code. Discussed Condition With: patient and Nurse. Discharge Planning: Once cleared by specialists.
[2017-12-08] MEDS ORDERED: Metoprolol Tartrate 100 MG Tablet PO SCH (09:00)
[2017-12-08] MEDS ORDERED: CLORAZEPATE DIPOTASSIUM 3.75 MG PO SCH (09:00)
[2017-12-08] MEDS ORDERED: diazePAM 2 MG Tablet PO SCH (09:00)
[2017-12-08] MEDS ORDERED: Potassium Chloride 25 MEQ Effervescent Tablet PO ONE (09:30)
[2017-12-08] MEDS ORDERED: Phytonadione Inj 10 MG/ML Vial SQ ONE ×2 (09:31→18:00)
--- NOTE | 2017-12-08 09:41 | P.PNOP ---
Subjective Interval history: Resting comfortably in bed. Patient is stable. Pain to right hip Physical Exam Vital signs: Vital Signs 12/07/17 10:00 12/07/17 12:00 12/07/17 14:00 Temperature 97.9 F Pulse Rate 56 L 46 L 47 L Respiratory Rate 16 Blood Pressure 95/49 L Pulse Oximetry 98 12/07/17 16:00 12/07/17 18:00 12/07/17 20:00 Temperature 97.6 F 97.8 F Pulse Rate 50 L 58 L 66 Respiratory Rate 18 Blood Pressure 120/52 L 137/61 Pulse Oximetry 100 100 12/07/17 22:00 12/08/17 00:00 12/08/17 02:00 Temperature 97.5 F L Pulse Rate 51 L 54 L 55 L Respiratory Rate 21 Blood Pressure 100/53 L Pulse Oximetry 98 12/08/17 04:00 12/08/17 06:00 Temperature 97.5 F L Pulse Rate 48 L 74 Respiratory Rate 21 Blood Pressure 112/54 L Pulse Oximetry 98 Intake & Output 12/07/17 12/08/17 12/08/17 18:59 06:59 18:59 Intake Total 1320 / 1320 1525 / 1525 Output Total 750 / 750 450 / 450 Balance 570 / 570 1075 / 1075 Weight 69.4 kg Intake: IV 1200 / 1200 1045 / 1045 NS Inj 1,000 ML @ 100 mls/hr IV 1000 / 1000 845 / 845 .CONT .Q10H KETTY Rx#:[id number] Ancef Inj 1,000 MG In NS Inj 100 / 100 100 / 100 100 ML @ 200 mls/hr IV.SIG Q8H KETTY Rx#:[id number] Flagyl 500 MG Inj 100 ML @ 200 100 / 100 100 / 100 mls/hr IV.SIG Q8H KETTY Rx#: [id number] Oral 120 / 120 480 / 480 Output: Urine 450 / 450 Urine Amount (Catheter) 750 / 750 Condom 750 / 750 Other: # Bowel Movements 0 0 Narrative: GENERAL: Well-developed patient, in no apparent distress. alert and oriented x 3 NECK: Hard Collar in place Right lower extremity: Pain with range of motion. Ulcerations. Distally intact sensation with active dorsiflexion and plantar flexion foot. Intact distal pulses - Urinary Catheter Management Condom Cath placed during this visit: no Results - Labs CBC & Chem 7: 12/08/17 04:39 12/08/17 04:39 Laboratory Results - last 24 hr 12/07/17 12/07/17 12/07/17 13:24 13:24 13:24 WBC 13.6 H RBC 4.12 L Hgb 12.0 L Hct 37.2 L MCV 90.3 MCH 29.1 MCHC 32.3 RDW 17.8 H Plt Count 449 MPV 9.1 Neut % (Auto) 89.9 H Lymph % (Auto) 1.5 L Mellette % (Auto) 8.3 H Eos % (Auto) 0.1 Baso % (Auto) 0.2 Neut # (Auto) 12.2 H Lymph # (Auto) 0.2 L Mel[place] # (Auto) 1.1 H Eos # (Auto) 0.0 Baso # (Auto) 0.0 WBC Differential . Differential Comment Auto diff final PT INR Sodium 140 Potassium 3.6 Chloride 103 Carbon Dioxide 27.9 Anion Gap 9 BUN 68 H Creatinine 1.57 H Estimated GFR 42 L Random Glucose 87 Calcium 8.3 L Total Bilirubin Direct Bilirubin Indirect Bilirubin AST ALT Alkaline Phosphatase Total Creatine Kinase 229 Total Protein Albumin 12/08/17 12/08/17 12/08/17 04:39 04:39 04:39 WBC 12.8 H RBC 4.17 L Hgb 12.3 L Hct 37.7 L MCV 90.4 MCH 29.5 MCHC 32.6 RDW 17.6 H Plt Count 408 MPV 9.2 Neut % (Auto) 91.7 H Lymph % (Auto) 2.5 L [place] % (Auto) 5.3 Eos % (Auto) 0.4 Baso % (Auto) 0.1 Neut # (Auto) 11.8 H Lymph # (Auto) 0.3 L Mel[place] # (Auto) 0.7 Eos # (Auto) 0.1 Baso # (Auto) 0.0 WBC Differential . Differential Comment Auto diff final PT 57.3 H INR 5.7 Sodium 144 Potassium 3.4 L Chloride 107 Carbon Dioxide 28.5 Anion Gap 9 BUN 58 H Creatinine 1.38 H Estimated GFR 49 L Random Glucose 93 Calcium 8.4 L Total Bilirubin 1.0 Direct Bilirubin 0.4 H Indirect Bilirubin 0.6 AST 32 ALT 32 Alkaline Phosphatase 93 Total Creatine Kinase Total Protein 5.9 L Albumin 2.6 L Assessment and Plan - Assessment and Plan 87-year-old male transferred from [facility] with C6 fracture and a right transcervical femoral neck fracture Hold Lovenox and transfuse 2 units of packed red blood cells. 10 mg vitamin K subcutaneously New INR at 6 PM tonight n.p.o. after midnight Possible surgery for right hip tomorrow if medically cleared and INR is 1.3 or less Neurosurgery has seen and evaluated the patient. Plan is for nonoperative treatment for his neck injury.
[2017-12-08] MEDS: hydroCHLOROthiazide 25 MG Tablet PO SCH (10:05)
[2017-12-08] MEDS: Senna/Docusate Sodium 8.6/50 MG Tablet PO SCH ×2 (10:05→20:21)
[2017-12-08] MEDS: Latanoprost 0.005% Opth Drops 2.5 ML Bottle EACH EYE SCH (10:05)
[2017-12-08] MEDS: Ferrous Sulfate 325 MG Tablet PO SCH (10:05)
[2017-12-08] MEDS: Ascorbic Acid 500 MG Tablet PO SCH (10:11)
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
--- NOTE | 2017-12-08 15:04 | P.PNWCN ---
Wound Care Nurse Consult Description: Received consult from Doctor Chavez for R buttock skin breakdown on admission. Communicated with: KANDACE Mak and Doctor Recommendation: 1.Please cleanse all open wounds with normal saline or wound cleanser with dressing changes. 2. Apply Versatel one to all open skin tears on L elbow, bilateral forearms, and R back cover with dry cover dressing secured with rolled gauze and tape. Please leave Versatel in place for one week and take of the direction of arrows placed. May change dry cover and rolled gauze PRN if saturated or dislodged. 3. Apply Optifoam gentle border 4x4 to L thigh wound and change dressing every 3 to 5 days or as needed if saturated or dislodged. 4. Apply Optifoam gentle 7x7 dressing inverted so that wider portion of dressing is distal. change dressing every 3 to 5 days or PRN saturated or dislodged. 5. Apply skin barrier film to R heel purple tissue and cover wound with dry gauze, secured with rolled gauze and tape. Change dressing BID. 6. Obtain [place] Airapy bed or K4 bed 7. Turn patient every 2 hours and PRN from L side to R side limiting time on back to P.T. and meals. Wound/Pressure Injury - Patient Status Premedicated for Pain Prior to Dressing Change: (wound care previously consulted) - Wound Left Forearm Wound Assessment: Ongoing Wound Type: Skin Tear Requested from Provider a Wound Care Consult: (x2) Wound Bed Appearance: Red Surrounding Tissue Temperature: Cool Drainage Description: Serosanguinous Drainage Amount: Minimal Dressing Status: Dry & Intact Primary Dressing: Versatel and non stick dressing Cover Dressing: Gauze Roll/Wrap Tape Type: Silk Wound Dressing Change Date: 12/08/17 Left Elbow Wound Assessment: Ongoing Wound Type: Skin Tear Wound Bed Appearance: [place] Surrounding Tissue Appearance: [place] Surrounding Tissue Temperature: Warm Drainage Amount: None Dressing Status: Open to Air Primary Dressing: Versatel Right Elbow Wound Assessment: Ongoing Wound Type: Skin Tear Wound Bed Appearance: scab Surrounding Tissue Appearance: [place] Drainage Amount: None Sacrum Wound Staging: Stage II Wound Assessment: Ongoing Wound Type: Pressure Injury Is This a Chronic Wound: No Requested from Provider a Wound Care Consult: Yes (Patient was seen by wound care) Length: 9 (~9cm) Width: 10 (~10cm) Depth: 0.1 (~0.1) Wound Bed Appearance: [place] ([place] with scattered purple colored tissue) Wound Bed Appearance: Wound bed presents with ~60% pink tissue with ~40% scattered purple tissue with in the stage II pressure injury. Surrounding Tissue Temperature: Warm Drainage Description: Serosanguinous Drainage Amount: Minimal Drainage Odor: No Odor Dressing Status: Changed Cleansing Solution: Saline Topical: Cavilon skin barrier film Primary Dressing: Mepilex adhesive foam dressing Wound Dressing Change Date: 12/08/17 Right Heel Wound Staging: DTI (opening to partial thickness skin loss) Wound Assessment: Ongoing Wound Type: Pressure Injury Is This a Chronic Wound: No Requested from Provider a Wound Care Consult: Yes (Wound care saw patient today) Length: 2 (~2cm) Width: 3 (~3cm) Depth: 0.1 (~0.1cm) Wound Bed Appearance: [place] Wound Bed Appearance: Open area noted with pink tissue on heel with surrounding intact purple non blanchable skin discoloration. Surrounding Tissue Temperature: Warm Drainage Amount: None Dressing Status: Open to Air Cleansing Solution: Saline Topical: skin barrier film Left Thigh Wound Assessment: Ongoing Wound Type: Traumatic Wound (Was a skin tear and now a non healing chronic wound ) Is This a Chronic Wound: Yes Length: 2 (~2cm) Width: 2 (~2cm) Depth: 0.1 (~<0.1) Wound Bed Appearance: [place] Wound Bed Appearance: 100% pink tissue Surrounding Tissue Appearance: [place] Surrounding Tissue Temperature: Warm Drainage Amount: Scant Dressing Status: Changed Cleansing Solution: Saline Primary Dressing: optifoam 4x4 gentle border Wound Dressing Change Date: 12/08/17 - Additional Information Received consult for pressure ulcer to buttocks, sacrum, R heel, R elbow and L elbow. Patient seen with KANDACE Mak. Bro s/p fall prior to admission to hospital. All wound measurements and descriptions are noted above.Assessed R heel with DTI that is opening to partial thickness skin loss. Skin barrier film was applied to R heel, RN will apply dry 4x4 gauze secured with rolled gauze and tape. Bilateral arm skin tear dressings were changed by KANDACE Mak, RN applied Versatel in place, and marked skin flaps. RN applied secondary dressing of telfa and rolled gauze. R elbow skin tear is noted with scab and was left open to air, L elbow skin tear is noted as partial thickness with 100% pink tissue. Wound was cleansed with normal saline and patted dry. Geochemical Manager applied skin barrier film to periwound, followed by Versatel dressing. Patient was then turned toward the L side to reveal open wound over sacral area. Wound appears to have been a DTI that open to partial thickness and now is a stage II pressure injury with scattered purple tissue with in the wound. Wound was cleansed normal saline and patted dry. Applied skin barrier film to periwound purple tissue and covered wound with adhesive foam dressing inverted. Wound to L thigh per patient is an old skin tear that has not healed. Wound was cleansed with normal saline and patted dry. KANDACE Mak applied Optifoam 4x4 gentle border.
--- NOTE | 2017-12-08 15:49 | P.PNNS ---
Subjective Interval history: Plan for Orthopedic hip surgery likely tomorrow. Stable in C-collar with C6 fracture. Physical Exam Vital signs: Vital Signs 12/07/17 16:00 12/07/17 18:00 12/07/17 20:00 Temperature 97.6 F 97.8 F Pulse Rate 50 L 58 L 66 Respiratory Rate 18 Blood Pressure 120/52 L 137/61 Pulse Oximetry 100 100 12/07/17 22:00 12/08/17 00:00 12/08/17 02:00 Temperature 97.5 F L Pulse Rate 51 L 54 L 55 L Respiratory Rate 21 Blood Pressure 100/53 L Pulse Oximetry 98 12/08/17 04:00 12/08/17 06:00 12/08/17 15:44 Temperature 97.5 F L 98 F Pulse Rate 48 L 74 70 Respiratory Rate 21 25 H Blood Pressure 112/54 L 125/60 Pulse Oximetry 98 100 Intake & Output 12/07/17 12/08/17 12/08/17 18:59 06:59 18:59 Intake Total 1320 / 1320 1525 / 1525 1000 / 1000 Output Total 750 / 750 450 / 450 Balance 570 / 570 1075 / 1075 1000 / 1000 Weight 69.4 kg Intake: IV 1200 / 1200 1045 / 1045 1000 / 1000 NS Inj 1,000 ML @ 100 mls/hr IV 1000 / 1000 845 / 845 1000 / 1000 .CONT .Q10H KETTY Rx#:[id number] Ancef Inj 1,000 MG In NS Inj 100 / 100 100 / 100 100 ML @ 200 mls/hr IV.SIG Q8H KETTY Rx#:[id number] Flagyl 500 MG Inj 100 ML @ 200 100 / 100 100 / 100 mls/hr IV.SIG Q8H KETTY Rx#: [id number] Oral 120 / 120 480 / 480 Intake (Blood Product) Amt 0 / 0 Plasma Thawed 5 Day Cp2d Unit 0 / 0 [id number] Output: Urine 450 / 450 Urine Amount (Catheter) 750 / 750 Condom 750 / 750 Other: # Bowel Movements 0 0 Narrative: Collar in place F/c x 4 with full strength throughout Motor 5/5 UE/LE A&O x 3 CN II-XII intact - Urinary Catheter Management Condom Cath placed during this visit: no Assessment and Plan - Assessment (1) C6 cervical fracture Code(s): S12.500A - Unspecified displaced fracture of sixth cervical vertebra, initial encounter for closed fracture Status: Acute Qualifiers: Qualified Code(s): S12.590A - Other displaced fracture of sixth cervical vertebra, initial encounter for closed fracture - Plan Mr. Henderson is an 87 y/o male who had a fall on 12/02. He is neurologically intact. He presented via EMS to an outside hospital on 12/06. Trauma evaluation demonstrates a two column injury C6 fracture. Plan: [place] cervical collar at all times. He is a non-operative candidate from a neurosurgical perspective given his significant medical co-morbidities, advanced age, and need for prolonged general anesthesia for any neurosurgical operative intervention. No need for cervical MRI given that the results would not affect management and the acquisition would involve moving him more than is necessary. Maintain C-collar during surgical intervention for hip fracture.
--- NOTE | 2017-12-08 15:53 | P.CONPAL ---
Consult Service: Palliative Care Requesting Physician: Jason Chavez Reason for Consult: a. To assist with evaluation and management of symptoms including:cough, pain, dysphagia b. To assist medical decision maker(s) with: better understanding of current medical conditions; weighing benefits/burdens of medical treatment options; making medical treatment decisions. Primary Care Provider: PROVIDER NON STAFF History of Present Illness History of Present Illness: This 87-year-old patient presented to the ED on 12/07/17, transferred from [facility] for further evaluation by trauma services here. He apparently sustained a fall at home though may have been on the ground for a couple of days unable to get up . His apparently provided him with a pillow and was bringing him food and water on the floor, and after a few days and noting ecchymosis called EMS. He was found to have a hip fracture, as well as C6 fracture. He was transferred here to [facility] 12/07 for further evaluation. Orthopedics, neurosurgery consulted. He is noted to have stage II saturations to sacrum, elbows, heels, buttocks. Wound care consultation also pending. * CXR= small right basilar opacity likely representing pleural effusion with airspace consolidation. * Noted with some degree of rhabdomyolysis likely secondary to being immobile on the floor for several days. BUN 68, creatinine 1.57. Improving slowly. CK 229. Albumin 2.6. LFTs unremarkable. * Orthopedic consultation: Recommended for right hip hemiarthroplasty patient apparently discussed this with surgeon and consented to proceed once INR corrected (INR 5.1) * Neurosurgery also consulted: Recommend non-operative management with c- collar. He is a nonoperative candidate given significant medical comorbidities advanced age and need for prolonged general anesthetic for any neurosurgical operative intervention. No need for MRI given the results will not affect management. Indicated cleared for orthosis surgery with recommendations to maintain log rolling and cervical with cervical collar at all times. Possible avoid ET intubation to minimize neck movement. Cervical fracture is unstable and could result in spinal cord injury with manipulation of neck. CT cervical spine: Horizontal fracture through the C6 vertebral body. No evidence of involvement of the posterior elements. Chronic degenerative changes at multiple levels. * Plan for possible surgery 12/09/17 if INR less than 1.3.. Ordered for transfusion 2 UNIT FFP TODAY. Receiving vitamin K subcu. overall prognosis considered poor. Given functional decline will likely require placement following acute hospitalization. Palliative care was consulted to assist with clarification of goals of medical treatment. * ST evaluated patient. Patient noted with baseline cough he reports from postnasal drip. He was initially recommended n.p.o. Speech therapy secondary evaluation notes cough response with phlegm still with a cough. Patient insistent on eating and drinking what he wants "he will sign any paper so he can drink". * Wound care evaluation: Patient with skin tears on bilateral forearms, left elbow. Right back. Patient with pressure wound patient stage II to sacrum 9 x 10 cm. With skin tear/chronic wound left thigh 2 x 2 centimeter. Patient was right heel wound 2 x 3 cm. Recommend air bed. Observe frequent turning and limited time on back. Patient seen in room no visitors present. Primary RN present for pertinent exam and discussion. Pt is alert, oriented and appropriate. Appears to have good insight to conditions, and able to detail fall and course up until hospitalization, and hospitalization. He does however tell me that his neck is "okay "and that they do not need to do anything for it and that it is not broken. I did reinforce with him that there is a fracture which is nonoperative due to comorbidities at the age etc., and that he will be wearing c-collar for some time and that it is at risk for spinal cord issue with too much motion. He verbalized understanding. Upon review of initial history and presenting injury he indicates he is "answered these questions 1 million times" and is somewhat irritable though becomes talkative and gives additional history. He indicates he tripped walking from bedroom the restroom to walk, he walks that path all the time ,he just tripped on a chair. He indicated initially he had hip pain but refused to seek medical treatment and he just wanted to lay on the floor where he was comfortable. They were able to bring him food and drink and make him comfortable with pillows. He said he did not feel like he initially needed treatment he just wanted to see how it sorted out. He indicates after a couple of days he agreed to let his called EMS who assisted him to a chair a recliner where he then remained for a day or so however he continued to have hip pain and developed some neck pain so finally agreed to seek medical evaluation via EMS he requested 911 be called. He understands plan for operative management of hip fracture which he wishes to proceed with and then rehabilitation to try to restore him to his prior level of function. He requests assistance with calling his to update, assisted him to dial phone he then spoke with her. He also requests I call her to provide a medical update. Function/Cognitive Trajectory: Lives at home with . Independent with all ADLs. Cognitively sharp. Driving, go shopping etc. Review of Systems Constitutional: Reports weight loss (Approximately 15 pounds in 6 months), Denies anorexia, Denies chills, Denies daytime sleepiness, Denies fever(s), Denies headache(s), Denies weakness Eyes: Denies change in vision Ears, Nose, Mouth, and Throat: Reports neck pain, Reports post nasal drip, Denies dizziness, Denies pain with swallowing, Denies sore throat Cardiovascular: Denies chest pain, Denies foot swelling, Denies shortness of breath Respiratory: Reports cough (Chronic he relates to PND), Denies chest congestion , Denies excessive phlegm production, Denies pain with cough, Denies shortness of breath Gastrointestinal: Denies abdominal pain, Denies change in stools, Denies constipation, Denies difficulty swallowing, Denies loose stools, Denies nausea, Denies pain with swallowing, Denies vomiting Genitourinary: Denies blood in urine, Denies decreased urination, Denies difficulty urinating Musculoskeletal: Reports joint pain (rt hip, new onset with fall ), Reports neck pain (new onset with fall), Denies abnormal walking, Denies back pain, Denies body aches Neurologic: Denies dizziness, Denies fainting, Denies frequent falls, Denies headache(s), Denies lack of coordination, Denies memory loss, Denies seizure- like activity Psychiatric: Denies abnormal sleep pattern, Denies anxiety Hematologic/Lymphatic: Reports easy bleeding PMFSH - History History Provided By: Patient, Significant Other - Medical History Medical History: Medical History (Last Reviewed 12/08/17 @ 15:42 by TING Cyr) Atrial fibrillation Cataract Hyperlipidemia Hypothyroidism Macular degeneration - Surgical History Surgical History: Surgical History (Last Reviewed 12/08/17 @ 15:42 by TING Cyr) H/O hernia repair History of tonsillectomy - Family History Family History: Family History (Last Reviewed 12/08/17 @ 15:42 by TING Cyr) Other Family history of acute myocardial infarction - Tobacco History Second Hand Smoke Exposure: No Tobacco Use In Past 30 Days: No Smoking Status: Never smoker - Alcohol History How Often Do You Have a Drink Containing Alcohol: 2 to 4 times a month - Substance Use History Substance History: No History of Abuse - Travel History Recent Travel in the [place] Within the Last 8 Weeks: No Recent Travel Out of the Country Within the Last 8 Weeks: No - Immunization History Tetanus Immunization: Unsure Hx Influenza Vaccine This Season: No Medications and Allergies Active Medications: Active Medications Al Hydroxide/Mg Hydroxide (Milk Of Magnesia Liq) 30 ml PO Q12H [facility] Last Admin: 12/08/17 10:11 Dose: 30 ml Ascorbic Acid (Vitamin C) 500 mg PO DAILY [facility] Last Admin: 12/08/17 10:11 Dose: 500 mg Bisacodyl (Dulcolax Supp) 10 mg RECTAL DAILY PRN PRN Reason: SEVERE CONSITIPATION Cetirizine HCl (Zyrtec) 10 mg PO BID [facility] Last Admin: 12/08/17 10:05 Dose: 10 mg Diazepam (Valium) 2 mg PO DAILY [facility] Ferrous Sulfate (Ferosul) 325 mg PO DAILY [facility] Last Admin: 12/08/17 10:05 Dose: 325 mg Hydrochlorothiazide (Hydrodiuril) 25 mg PO DAILY [facility] Last Admin: 12/08/17 10:05 Dose: 25 mg Sodium Chloride (Ns Inj) 1,000 mls @ 100 mls/hr IV.CONT .Q10H [facility] Last Admin: 12/08/17 10:15 Dose: 100 mls/hr Lactulose (Lactulose Liq) 30 ml PO DAILY PRN PRN Reason: SEVERE CONSITIPATION Latanoprost (Xalatan 0.005% Opth Drops) 1 drop EACH EYE DAILY [facility] Last Admin: 12/08/17 10:05 Dose: 1 drop Levothyroxine Sodium (Synthroid) 75 mcg PO DAILY@0600 [facility] Last Admin: 12/08/17 06:50 Dose: 75 mcg Naloxone HCl (Narcan Inj) 0.4 mg IV.PUSH UNSCH PRN PRN Reason: SEE LABEL COMMENTS Ondansetron HCl (Zofran Inj) 4 mg IV.PUSH Q6H PRN PRN Reason: NAUSEA OR VOMITING Oxycodone/Acetaminophen (Percocet 7.5/325 Mg) 1 tab PO Q4H PRN PRN Reason: PAIN SCALE 6 TO 10 Oxycodone/Acetaminophen (Percocet 5/325 Mg) 1 tab PO Q4H PRN PRN Reason: PAIN SCALE 3 TO 5 Pantoprazole Sodium (Protonix) 40 mg PO DAILY [facility] Last Admin: 12/08/17 10:05 Dose: 40 mg Phytonadione (Vitamin K Inj) 7.5 mg SQ ONCE ONE Stop: 12/08/17 18:01 Pravastatin Sodium (Pravachol) 20 mg PO DAILY [facility] Last Admin: 12/08/17 10:05 Dose: 20 mg Senna/Docusate Sodium (Kiara-Colace) 1 tab PO BID [facility] Last Admin: 12/08/17 10:05 Dose: 1 tab Sennosides (Senokot) 17.2 mg PO Q12H PRN PRN Reason: Moderate Constipation Zinc Sulfate (Zinc-220) 220 mg PO DAILY [facility] Last Admin: 12/08/17 10:12 Dose: 220 mg Allergies Allergy/AdvReac Type Severity Reaction Status Date / Time No Known Allergies Allergy Verified 12/07/17 01:10 Home Medications Medication Instructions Recorded Confirmed Type clorazepate dipotassium 3.75 mg PO DAILY 12/07/17 12/07/17 History ferrous sulfate [iron] 325 mg PO DAILY 12/07/17 12/07/17 History hydrochlorothiazide 25 mg PO DAILY 12/07/17 12/07/17 History latanoprost 1 drop EACH EYE DAILY 12/07/17 12/07/17 History levothyroxine 75 mg PO DAILY 12/07/17 12/07/17 History metoprolol tartrate 100 mg PO DAILY 12/07/17 12/07/17 History simvastatin 10 mg PO DAILY 12/07/17 12/07/17 History triamterene-hydrochlorothiazid 1 tab PO DAILY 12/07/17 12/07/17 History warfarin 5 mg PO DAILY 12/07/17 12/07/17 History Advance Directives Living Will: No Healthcare Surrogate: No Power of Poultry Cutter: No Physical Exam Vital Signs: Vital Signs - 24 hr 12/07/17 16:00 12/07/17 18:00 12/07/17 20:00 Temperature 97.6 F 97.8 F Pulse Rate 50 L 58 L 66 Respiratory Rate 18 Blood Pressure 120/52 L 137/61 Pulse Oximetry 100 100 12/07/17 22:00 12/08/17 00:00 12/08/17 02:00 Temperature 97.5 F L Pulse Rate 51 L 54 L 55 L Respiratory Rate 21 Blood Pressure 100/53 L Pulse Oximetry 98 12/08/17 04:00 12/08/17 06:00 Temperature 97.5 F L Pulse Rate 48 L 74 Respiratory Rate 21 Blood Pressure 112/54 L Pulse Oximetry 98 I&O: Intake & Output 12/06/17 12/07/17 12/08/17 12/09/17 06:59 06:59 06:59 06:59 Intake Total 200 / 200 2845 / 2845 1000 / 1000 Output Total 1200 / 1200 Balance 200 / 200 1645 / 1645 1000 / 1000 Weight 67.5 kg 69.4 kg Physical Exam: CONSTITUTIONAL/GENERAL: This is a thin, frail appearing elderly patient. Alert no acute distress TUBES/LINES/DRAINS: Peripheral IV bilateral upper extremity, external catheter, nasal cannula O2, SCDs SKIN: No jaundice, rashes, or lesions. Several areas ecchymoses on upper extremities. Dressings to bilateral arms clean and dry. Ecchymosis visible to right hip. Skin warm and dry.Chronic vascular changes lower extremities-- varicosities, many telangiectasis , some slight rubor noted. HEAD: Atraumatic. Normocephalic. EYES: Pupils equal and round and reactive. Extraocular motions intact. No scleral icterus. No injection or drainage. Fundi not examined. ENT: Hearing grossly normal. Nose without bleeding or purulent drainage. Throat without visible erythema, exudates, masses, or lesions. Mucous membranes very dry. NECK: Trachea midline. Supple, nontender. No palpable thyroid enlargement or nodularity. CARDIOVASCULAR: Irregular rate and rhythm. No murmur. no JVD. Peripheral pulses symmetric. Chronic vascular changes lower extremities--varicosities, many telangiectasis , some slight rubor noted. RESPIRATORY/CHEST: Symmetric, unlabored respirations. On 2 L per .clear to auscultation. Breath sounds equal bilaterally. GASTROINTESTINAL: Abdomen soft, flat, non-tender, nondistended. No hepato- splenomegaly, or palpable masses. No guarding. Bowel sounds present. GENITOURINARY: Without palpable bladder distension. Dey catheter in place. MUSCULOSKELETAL: Extremities without clubbing, cyanosis, or edema. No joint effusion noted. + tender rt hip. No calf tenderness. No mottling or clubbing. LYMPHATICS: No palpable cervical or supraclavicular adenopathy. NEUROLOGICAL: Awake and alert.Oriented x3. Appropriate, appears to have reasonable insight and judgment. Motor and sensory grossly within normal limits. Follows commands. Cognitively sharp. Moves all extremities. PSYCHIATRIC: No obvious anxiety/depression. no apparent hallucinations or other psychotic thought process. Diagnostic Tests Laboratory: Laboratory Results - last 72 hr 12/07/17 12/07/17 12/07/17 13:24 13:24 13:24 WBC 13.6 H RBC 4.12 L Hgb 12.0 L Hct 37.2 L MCV 90.3 MCH 29.1 MCHC 32.3 RDW 17.8 H Plt Count 449 MPV 9.1 Neut % (Auto) 89.9 H Lymph % (Auto) 1.5 L Boyle % (Auto) 8.3 H Eos % (Auto) 0.1 Baso % (Auto) 0.2 Neut # (Auto) 12.2 H Lymph # (Auto) 0.2 L Boyle # (Auto) 1.1 H Eos # (Auto) 0.0 Baso # (Auto) 0.0 WBC Differential . Differential Comment Auto diff final PT INR Sodium 140 Potassium 3.6 Chloride 103 Carbon Dioxide 27.9 Anion Gap 9 BUN 68 H Creatinine 1.57 H Estimated GFR 42 L Random Glucose 87 Calcium 8.3 L Magnesium Total Bilirubin Direct Bilirubin Indirect Bilirubin AST ALT Alkaline Phosphatase Total Creatine Kinase 229 Total Protein Albumin Blood Type Antibody Screen Blood Bank Comment 12/08/17 12/08/17 12/08/17 04:39 04:39 04:39 WBC 12.8 H RBC 4.17 L Hgb 12.3 L Hct 37.7 L MCV 90.4 MCH 29.5 MCHC 32.6 RDW 17.6 H Plt Count 408 MPV 9.2 Neut % (Auto) 91.7 H Lymph % (Auto) 2.5 L Boyle % (Auto) 5.3 Eos % (Auto) 0.4 Baso % (Auto) 0.1 Neut # (Auto) 11.8 H Lymph # (Auto) 0.3 L Boyle # (Auto) 0.7 Eos # (Auto) 0.1 Baso # (Auto) 0.0 WBC Differential . Differential Comment Auto diff final PT 57.3 H INR 5.7 Sodium 144 Potassium 3.4 L Chloride 107 Carbon Dioxide 28.5 Anion Gap 9 BUN 58 H Creatinine 1.38 H Estimated GFR 49 L Random Glucose 93 Calcium 8.4 L Magnesium Total Bilirubin 1.0 Direct Bilirubin 0.4 H Indirect Bilirubin 0.6 AST 32 ALT 32 Alkaline Phosphatase 93 Total Creatine Kinase Total Protein 5.9 L Albumin 2.6 L Blood Type Antibody Screen Blood Bank Comment 12/08/17 12/08/17 12/08/17 04:39 11:35 12:04 WBC RBC Hgb Hct MCV MCH MCHC RDW Plt Count MPV Neut % (Auto) Lymph % (Auto) Boyle % (Auto) Eos % (Auto) Baso % (Auto) Neut # (Auto) Lymph # (Auto) Boyle # (Auto) Eos # (Auto) Baso # (Auto) WBC Differential Differential Comment PT INR Sodium Potassium Chloride Carbon Dioxide Anion Gap BUN Creatinine Estimated GFR Random Glucose Calcium Magnesium 2.2 Total Bilirubin Direct Bilirubin Indirect Bilirubin AST ALT Alkaline Phosphatase Total Creatine Kinase Total Protein Albumin Blood Type A Positive Antibody Screen Negative Blood Bank Comment Result Diagrams: 12/09/17 03:40 12/09/17 03:40 Patient/Family Conference Family Conference Time: 50 Family Conference Location: Bedside, Telephone Issues Discussed: Met with patient at the bedside approximately 30-35 minutes, discussion included the following: * Palliative care role, purpose, approach * Additional medical, psychosocial, and spiritual history * Patients general health, functional status, and cognitive changes in the months leading up to the current hospitalization * Patient understanding of the current medical problems * Patient understanding of prognosis * Patients goals of treatment * Current medical treatment options and benefits/burdens of those options; review of possible complications/setbacks may face going forward related to advanced age, comorbidities, debilitated, bedbound status postoperatively * Review of CPR or resuscitation entails, CODE STATUS. Patient elects DNR status. He indicates he just wants his called if he dies so she may arrange. Explain DNR would be rescinded during operative and postoperative period. * Review of advance directives, healthcare surrogate. Patient indicates he does not have a living will or any documentation naming who would be his emergency decision maker. He indicates he would want this to be his and is fine with her being decision-maker by proxy. * Questions answered to the best of my ability * Palliative care contact information provided Discussed the above with patient. He appears to have overall good understanding of his conditions. However he did not fully understand the neck injury though he verbalizes understanding of fx after my discussion. He understands high risk for potential complications. He indicates if he did experience significant complications such as those requiring life support that he would not want anything heroic or artificially prolonging. he declines counseling specialist visits. He requests I call his to provide an update following exam. I did call his Christina, spoke with her approximately 20 minutes regarding the above items. Review with her patient's expressed wishes. Review with her his request for DNR status. She asks if she is allowed to override this if she does not agree, explained to her that as long as he is alert oriented able to make his own decision she cannot override his wishes. Reviewed that if he is incapacitated she would be his proxy though would still encourage her to honor whatever his treatment preferences would be. She verbalizes understanding of conditions, prognosis, potential risks/complications. She is hopeful that he will not encounter any complications or setbacks. All questions answered to the best of my ability. . Assessment and Plan - Disease Oriented Problem List (1) C6 cervical fracture (2) Rhabdomyolysis (3) Closed hip fracture (4) Dehydration (5) A-fib (6) Hypothyroid (7) Hyperlipidemia - Symptom Scale (1) Pain 0-10 Scale: 5 (2) Dysphagia 0-10 Scale: Unable to quantify (3) Cough 0-10 Scale: Unable to quantify Pertinent Non-Medical Issues: Psychosocial: Patient originally from [facility]. 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 Retired to [place] in 1997. to his for many years. They have no children though they have a cat named Farhad. Spiritual: Jew though no particular affiliation does not want counseling specialist visit Legal: Patient currently alert, oriented incapacitated appears to have reasonable insight into conditions. Appears able to make his own decisions. He does not have a living will or health care surrogate. Per [place] statute his would be appropriate legal proxy if he should become incapacitated. He is in agreement with this. Ethical issues impacting care: No ethical issues identified Important Contacts: Christina Henderson [phone] Prognosis: This unfortunate patient was admitted as a transfer from [facility],after sustaining a hip fracture, as well as C-spine fracture secondary to a fall sustained at home. He is not a candidate for operative management of C6 fracture due to comorbidities, age. He is recommended for management with cervical collar, though it is noted that fracture is considered unstable. He is high risk for spinal cord compromise secondary to this. He also has a right hip fracture which is recommended for surgical intervention per ortho once INR normalized. He is high risk for postoperative complications secondary to immobility, debilitated nutritional status, and advanced age. He may be appropriate for hospice if goals were comfort oriented. Code Status: No Code DNR Plan: Legal decision maker:Patient currently alert, oriented incapacitated appears to have reasonable insight into conditions. Appears able to make his own decisions. He does not have a living will or health care surrogate. Per [place] statute his would be appropriate legal proxy if he should become incapacitated. He is in agreement with this Goals: Patient goals are semi-aggressive short of DNR/resuscitation. He wishes to pursue surgical management and rehabilitation efforts to restore to his prior level of function. He does not want CPR or other heroic measures should his condition deteriorate. CODE STATUS: DNR SYMPTOMS: --Pain-patient admitted with right hip fracture, C6 fracture. Endorses some neck and hip pain which he indicates is "not too bad "and well managed with his current prn regimen. he has not required any prn percocet in past 24 hrs, indicates pain is Ok when not moving much. Nursing affirms he has been comfortable. No chronic pain reported. He will be expected to experience postoperative pain which should be well managed with prn regimen, will continue to evaluate. --Cough/dyspnea-patient reports chronic intermittent cough he relates to postnasal drip. This occurred during ST evaluation with any taking of fluids some concern for aspiration/dysphagia. Patient endorsing that he has had this cough for a long time secondary to allergies. High risk for pneumonia, dyspnea, respiratory deterioration postoperatively. --Dysphagia-concern for possible dysphasia per ST evaluation noted with significant coughing with any fluids the patient attributes this to postnasal drip and allergies and relates cough is chronic. Possible he may be having some chronic dysphagia and aspiration though chest x-ray does not indicate any acute process. We will continue to evaluate. Patient has requested to be allowed to have diet as he will tolerate. Palliative care will continue to follow during hospital course as condition evolves, to assist patient/decision-maker with understanding of medical conditions, weighing benefits/burdens of treatment options, for clarification of goals of treatment. Additionally will assist with any symptoms of palliative concern Appreciation Thank you for the opportunity to participate in the care of Guanako Henderson. Attestation Attestation: To help prompt me to consider important information that might be impacting today's encounter and assessment, information from prior notes written by myself or my colleagues may have been "brought forward" into today's note. My signature on this note, however, is an attestation that I personally performed the exam, history, and/or decision-making noted today, and, unless otherwise indicated, the interactions with patient, family, and staff as well as the review of records all occurred today. I also attest that the listed assessment and stated plan reflect my best clinical judgment today based on the combination of historical information, prior notes, and today's exam/ interactions. When time spent is documented, it refers only to time spent today by the signer, or if indicated, combined time spent today by collaborating physician/nurse practitioner.
--- NOTE | 2017-12-08 15:58 | ECG ---
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
--- NOTE | 2017-12-08 16:01 | P.DIET ---
Nutritional Evaluation Type of nutrition evaluation: initial Nutrition screening: [facility] ([place]) Subjective Subjective Comments: Pt is s/p fall at home. Pt is not eating food but will drink the Ensure Enlive. Objective - Diagnosis Hip Fx, C6 Fx, Rhabdomyolosis, JOHN - Objective % IBW: 86 (IBW = 172#) Body Weight Used for Calculations: Actual (67.5 kg admission wt) Energy Needs - Lower Range (kCal/kg): 32 Energy Needs - Upper Range (kCal/kg): 36 Lower Limit kCal/kg (kCals): 2,160 Upper Limit kCal/kg (kCals): 2,430 Lower Limit Protein Factor (Grams per Kg): 1.2 Upper Limit Protein Factor (Grams per Kg): 1.6 Lower Protein Needs (Protein): 81 Upper Protein Needs (Protein): 108 Dietitian Reviewed in Medical Record: Current diet, Curent medications, Intake & Output, Labs, Medical history, Wound/DTI Diet Order: Mechanical Soft with chopped meat, nectar thickened liquids Speech Therapy Recommendations: Yes (rec npo on 12/07, deferred diet order to Dr on 12/08) Wound Care Note: Sacrum stage 2 pressure injury, R heel DTI pressure injury per WOCN dated 12/08 Objective Comments: Meds include Vit C, FeSO4, synthroid and protonix Feeding - Current PO Supplement Current Supplement: Ensure Enlive Current Supplement Flavor: Vanilla Current kCals Provided by Supplement: 350 (per 8 oz) Current Protein Provided by Supplement: 20 (per 8 oz) Supplement Comments: Pt is receiving 2 vanilla Ensure Enlive on each tray as ordered Assessment Assessment: Pt is at high nutrition risk 2' to pressure injuries, low wt for ht, poor po intake and advanced age. Will continue Ensure Enlive as ordered: these will provide a total of 2100 kcals and 120 gms protein if all are consumed and this will adequately meet nutritional needs. RD will follow and encourage po intake as tolerated. Recommendations: 1. Diet texture per ST 2. Ensure Enlive- two on each tray 3. Please record % of meal eaten in EMR under Feeding Assessment Dietitian to Monitor: Lab values, Supplement acceptance, Intake & Output, Diet tolerance, Weight change, PO Intake, Diet advancement, Wound/skin status, Medical course
[2017-12-08 18:45] LABS: INR 1.9 Ratio; Prothrombin Time 19.7 sec (9.8-11.6)
[2017-12-09 04:31] LABS: Baso % (Auto) 0.2 % (0.0-2.0); Eos # (Auto) 0.1 th/mm3 (0.0-0.4); Eos % (Auto) 0.3 % (0.0-4.0); Hematocrit 35.4 % (39.0-51.0); Hemoglobin 11.8 gm/dL (13.0-17.0); Lymph # (Auto) 0.3 th/mm3 (1.0-4.8); Lymph % (Auto) 2.2 % (9.0-44.0); Mean Corpuscular HGB Conc 33.2 % (32.0-36.0); Mean Corpuscular Hemoglobin 29.4 pg (27.0-34.0); Mean Corpuscular Volume 88.4 fL (80.0-100.0); Mean Platelet Volume 9.3 fL (7.0-11.0); Mono # (Auto) 1.1 th/mm3 (0.0-0.9); Mono % (Auto) 7.2 % (0.0-8.0); Neut # (Auto) 13.7 th/mm3 (1.8-7.7); Neut % (Auto) 90.1 % (16.0-70.0); Platelet Count 357 th/mm3 (150-450); Red Blood Count 4.01 mil/mm3 (4.50-5.90); Red Cell Distribution Width 16.9 % (11.6-17.2); White Blood Count 15.3 th/mm3 (4.0-11.0)
[2017-12-09 04:44] LABS: INR 1.6 Ratio; Prothrombin Time 15.8 sec (9.8-11.6)
[2017-12-09 04:58] LABS: Alanine Aminotransferase 24 U/L (12-78); Albumin 2.5 g/dL (3.4-5.0); Alkaline Phosphatase 87 U/L (45-117); Anion Gap 7 meq/L (5-15); Aspartate Aminotransferase 19 U/L (15-37); Blood Urea Nitrogen 42 mg/dL (7-18); Calcium 8.4 mg/dL (8.5-10.1); Carbon Dioxide 31.9 meq/L (21.0-32.0); Chloride 110 meq/L (98-107); Glomerular Filtration Rate 63 mL/min (>89); Glucose,Random 103 mg/dL (74-106); Potassium 3.4 meq/L (3.5-5.1); Sodium 149 meq/L (136-145)
[2017-12-09] MEDS: Sod Chloride 0.9% Inj 1,000 ML IV.CONT SCH ×2 (06:38→16:20)
--- NOTE | 2017-12-09 07:06 | P.PNOP ---
Subjective Interval history: s/p right femoral neck fx doing well. no changes. Physical Exam Vital signs: Vital Signs 12/08/17 08:00 12/08/17 12:00 12/08/17 13:00 Temperature 98.2 F 98 F Pulse Rate 75 92 H 80 Respiratory Rate 15 20 20 Blood Pressure 114/56 L 127/60 Pulse Oximetry 96 97 96 12/08/17 15:44 12/08/17 16:00 12/08/17 16:31 Temperature 98 F 98 F 98 F Pulse Rate 70 64 61 Respiratory Rate 25 H 20 22 Blood Pressure 125/60 141/63 H 139/63 Pulse Oximetry 100 97 98 12/08/17 20:00 12/08/17 20:52 12/09/17 00:00 Temperature 98.2 F 98.4 F Pulse Rate 69 61 Respiratory Rate 23 20 Blood Pressure 144/64 H 156/69 H Pulse Oximetry 97 96 100 12/09/17 04:00 12/09/17 06:52 Temperature 98.5 F 98.2 F Pulse Rate 53 L 42 L Respiratory Rate 23 24 Blood Pressure 123/57 L 133/60 Pulse Oximetry 92 L 96 Intake & Output 12/08/17 12/09/17 12/09/17 18:59 06:59 18:59 Intake Total 2101 / 2101 1999 / 1999 Output Total 850 / 850 800 / 800 Balance 1251 / 1251 1200 / 1200 Weight 66.8 kg Intake: IV 1000 / 1000 1999 / 1999 NS Inj 1,000 ML @ 100 mls/hr IV 1000 / 1000 1999 / 1999 .CONT .Q10H [facility] Rx#:[id number] Oral 480 / 480 Intake (Blood Product) Amt 621 / 621 0 / 0 Plasma Thawed 5 Day Cp2d Unit 0 / 0 [id number] Plasma Thawed 5 Day Cp2d Unit 340 / 340 [id number] Plasma Thawed 5 Day Cp2d Unit 281 / 281 [id number] Output: Urine 100 / 100 800 / 800 Urine Amount (Catheter) 750 / 750 Condom 750 / 750 Other: Date of Last Bowel Movement 12/06/17 12/06/17 # Bowel Movements 0 Narrative: RLE: nvi. pain in hip with motion - Urinary Catheter Management Condom Cath placed during this visit: no Results - Labs CBC & Chem 7: 12/09/17 03:40 12/09/17 03:40 Laboratory Results - last 24 hr 12/08/17 12/08/17 12/08/17 04:39 11:35 12:04 WBC RBC Hgb Hct MCV MCH MCHC RDW Plt Count MPV Neut % (Auto) Lymph % (Auto) [place] % (Auto) Eos % (Auto) Baso % (Auto) Neut # (Auto) Lymph # (Auto) [place] # (Auto) Eos # (Auto) Baso # (Auto) WBC Differential Differential Comment PT INR Sodium Potassium Chloride Carbon Dioxide Anion Gap BUN Creatinine Estimated GFR Random Glucose Calcium Magnesium 2.2 Total Bilirubin AST ALT Alkaline Phosphatase Total Protein Albumin Blood Type A Positive Antibody Screen Negative Blood Bank Comment 12/08/17 12/09/17 12/09/17 18:12 03:40 03:40 WBC 15.3 H RBC 4.01 L Hgb 11.8 L Hct 35.4 L MCV 88.4 MCH 29.4 MCHC 33.2 RDW 16.9 Plt Count 357 MPV 9.3 Neut % (Auto) 90.1 H Lymph % (Auto) 2.2 L [place] % (Auto) 7.2 Eos % (Auto) 0.3 Baso % (Auto) 0.2 Neut # (Auto) 13.7 H Lymph # (Auto) 0.3 L [place] # (Auto) 1.1 H Eos # (Auto) 0.1 Baso # (Auto) 0.0 WBC Differential . Differential Comment Auto diff final PT 19.7 H D INR 1.9 Sodium 149 H Potassium 3.4 L Chloride 110 H Carbon Dioxide 31.9 Anion Gap 7 BUN 42 H Creatinine 1.11 Estimated GFR 63 L Random Glucose 103 Calcium 8.4 L Magnesium Total Bilirubin 1.2 H AST 19 ALT 24 Alkaline Phosphatase 87 Total Protein 6.0 L Albumin 2.5 L Blood Type Antibody Screen Blood Bank Comment 12/09/17 12/09/17 03:40 06:18 WBC RBC Hgb Hct MCV MCH MCHC RDW Plt Count MPV Neut % (Auto) Lymph % (Auto) [place] % (Auto) Eos % (Auto) Baso % (Auto) Neut # (Auto) Lymph # (Auto) [place] # (Auto) Eos # (Auto) Baso # (Auto) WBC Differential Differential Comment PT 15.8 H INR 1.6 Sodium Potassium Chloride Carbon Dioxide Anion Gap BUN Creatinine Estimated GFR Random Glucose Calcium Magnesium Total Bilirubin AST ALT Alkaline Phosphatase Total Protein Albumin Blood Type Antibody Screen Blood Bank Comment Assessment and Plan - Assessment and Plan 87-year-old male transferred from [facility] with C6 fracture and a right transcervical femoral neck fracture INR 1.6 2 more units of FFP plan for surgery today for right hip Neurosurgery has seen and evaluated the patient. Plan is for nonoperative treatment for his neck injury.
[2017-12-09] MEDS: Levothyroxine 75 MCG Tablet PO SCH (07:14)
--- NOTE | 2017-12-09 09:02 | P.PNNS ---
Subjective Interval history: No acute events overnight Physical Exam Vital signs: Vital Signs 12/08/17 12:00 12/08/17 13:00 12/08/17 15:44 Temperature 98 F 98 F Pulse Rate 92 H 80 70 Respiratory Rate 20 20 25 H Blood Pressure 127/60 125/60 Pulse Oximetry 97 96 100 12/08/17 16:00 12/08/17 16:31 12/08/17 20:00 Temperature 98 F 98 F 98.2 F Pulse Rate 64 61 69 Respiratory Rate 20 22 23 Blood Pressure 141/63 H 139/63 144/64 H Pulse Oximetry 97 98 97 12/08/17 20:52 12/09/17 00:00 12/09/17 04:00 Temperature 98.4 F 98.5 F Pulse Rate 61 53 L Respiratory Rate 20 23 Blood Pressure 156/69 H 123/57 L Pulse Oximetry 96 100 92 L 12/09/17 06:52 12/09/17 07:09 12/09/17 07:34 Temperature 98.2 F 98.2 F Pulse Rate 42 L 60 Respiratory Rate 24 28 H Blood Pressure 133/60 146/65 H Pulse Oximetry 96 94 L 98 Intake & Output 12/08/17 12/09/17 12/09/17 18:59 06:59 18:59 Intake Total 2101 / 2101 1999 276 / 276 Output Total 850 / 850 800 / 800 Balance 1251 / 1251 1200 / 1200 276 / 276 Weight 66.8 kg Intake: IV 1000 / 1000 1999 NS Inj 1,000 ML @ 100 mls/hr IV 1000 / 1000 1999 .CONT .Q10H [facility] Rx#:[id number] Oral 480 / 480 Intake (Blood Product) Amt 621 / 621 0 / 0 276 / 276 Plasma Thawed 5 Day Cp2d Unit 0 / 0 276 / 276 [id number] Plasma Thawed 5 Day Cp2d Unit 340 / 340 [id number] Plasma Thawed 5 Day Cp2d Unit 281 / 281 [id number] Output: Urine 100 / 100 800 / 800 Urine Amount (Catheter) 750 / 750 Condom 750 / 750 Other: Date of Last Bowel Movement 12/06/17 12/06/17 # Bowel Movements 0 Narrative: Opens eyes spontaneously Oriented to self Follows commands with full strength bilateral upper extremities, left lower extremity Right lower extremity strength pain limited due to hip fracture Cervical collar in place. - Urinary Catheter Management Condom Cath placed during this visit: no Assessment and Plan - Assessment (1) C6 cervical fracture Code(s): S12.500A - Unspecified displaced fracture of sixth cervical vertebra, initial encounter for closed fracture Status: Acute Qualifiers: Encounter type: initial encounter Fracture type: closed Fracture morphology: other fracture Fracture alignment: displaced Qualified Code(s): S12.590A - Other displaced fracture of sixth cervical vertebra, initial encounter for closed fracture - Plan Mr. Henderson is an 87 y/o male who had a fall on 12/02. He is neurologically intact. He presented via EMS to an outside hospital on 12/06. Trauma evaluation demonstrates a two column injury C6 fracture. Plan: [place] cervical collar at all times. Orthopedic surgery may perform an intervention for his right hip fracture today. Intraoperatively, he should be log rolled into position and his cervical spine should be maintained in neutral alignment with cervical collar. If possible, would avoid endotracheal intubation in order to minimize neck movement. His cervical fracture is unstable and could result in spinal cord injury with manipulation of his neck.
[2017-12-09] MEDS: Ferrous Sulfate 325 MG Tablet PO SCH (09:32)
[2017-12-09] MEDS: hydroCHLOROthiazide 25 MG Tablet PO SCH (09:32)
[2017-12-09] MEDS: Ascorbic Acid 500 MG Tablet PO SCH (09:32)
[2017-12-09] MEDS: Latanoprost 0.005% Opth Drops 2.5 ML Bottle EACH EYE SCH (09:33)
[2017-12-09] MEDS: Senna/Docusate Sodium 8.6/50 MG Tablet PO SCH ×2 (09:33→20:43)
[2017-12-09] MEDS ORDERED: Sodium Chlor 0.9% Inj 250 ML ONE (12:09)
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
[2017-12-09 13:46] LABS: INR 1.4 Ratio; Prothrombin Time 13.7 sec (9.8-11.6)
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
[2017-12-10] MEDS: Sod Chloride 0.9% Inj 1,000 ML IV.CONT SCH ×3 (03:33→21:41)
[2017-12-10 05:33] LABS: INR 1.3 Ratio; Prothrombin Time 12.7 sec (9.8-11.6)
[2017-12-10] MEDS: Levothyroxine 75 MCG Tablet PO SCH (05:59)
[2017-12-10] MEDS ORDERED: Tranexamic Acid Inj 1,000 MG in Sodium Chlor 0.9% Inj 100 ML IV.SIG STA (08:22)
[2017-12-10] MEDS ORDERED: Tobramycin Sulfate 1,200 MG Vial (for ortho/sterile core) OTHER ONE (08:39)
[2017-12-10] MEDS ORDERED: Morphine Inj 4 MG/ML Vial IV.PUSH PRN (09:44)
[2017-12-10] MEDS ORDERED: Post-op Orders (for Pharmacy) OTHER STA (09:44)
[2017-12-10] MEDS ORDERED: Enoxaparin Inj 30 MG/0.3 ML Syringe SQ SCH (09:45)
--- NOTE | 2017-12-10 09:55 | P.OP ---
- Preoperative Diagnosis (1) Closed hip fracture Date of procedure: 12/10/17 Procedure: Right hip cemented bipolar hemiarthroplasty Anesthesia: GETA Surgeon: Fredrick Pena MD Media Relations Manager: Soren Vargas PA-C The surgical procedure was assisted by my physician assistant manager retail. My P.A. presence was necessary throughout this case for the manipulation and positioning of the surgical extremity. My P.A. was assisting me throughout the duration of this procedure. The skill set of a physician assistant manager retail was medically necessary to complete this procedure. During the surgical case the surgical nurse practitioner was working at the back table and the physician assistant manager retail was directly assisting me. Operation and Findings: PLAN OF ACTIVITY Weight bear as tolerated. IMPLANTS USED DePuy cemented [place] size [7] stem with size [54] bipolar head and [+5] neck. DETAILS OF PROCEDURE Preoperatively [place] was seen and evaluated. He has a displaced right femoral neck fracture. He also has a cervical spine injury and has been evaluated by Dr. Vincent of neurosurgery. He is in a c-collar. Preoperatively I discussed this case with Dr. Vincent and anesthesiologist. Anesthesiologist felt that patient would best be suited for general anesthesia.. I explained that patient would need to be in a lateral position. After discussion with both neurosurgery and anesthesia, decision was made to proceed with surgery using strict spinal precautions. Patient was brought into the operating room and placed on the OR table. The patient was given anesthesia. The patient received IV antibiotics. The patient was then placed in lateral decubitus position. Care was taken to maintain spinal precautions at all times. The hip and leg were prepped with alcohol, followed by Hibiclens and draped in a usual sterile fashion. Clean air was used for this procedure. Time out procedure was performed. The procedure began with a 5 inch incision over the posterolateral hip. The subcutaneous tissue was dissected with the Bovie. The iliotibial band were split in line with fibers. The [place] retractor was placed. The piriformis and external rotators were released from the femur and tagged with a #1 Vicryl suture. The capsule is now incised and tagged with #1 Vicryl. The femoral neck fracturewas now visualized. A corkscrew was now used to remove the femoral head. The femoral head was sized and measured. Soft tissue was now protected. The hip skid was placed underneath the femoral neck. An oscillating saw was used to make a femoral neck cut. At this point attention was turned to preparation of the proximal femur. A box osteotome was used to remove the lateral cortex of the femoral neck. The T- handle reamer was used to open the femoral canal. The canal was now reamed. Next , the canal was broached up to appropriate size. A lateralizing reamer was used to help lateralize the prosthesis. At this point a trial head and neck were placed. The hip was reduced. The patient was found to have excellent stability with good range of motion. Trial components were removed. Soft tissue and bone were thoroughly irrigated. The summit stem was now opened. Cement was mixed with vancomycin powder. Cement was pressurized into the femoral canal. The stem was now placed into the proximal femur. Care was taken to keep appropriate anteversion. excess cement was removed. After cement was set, the head and neck were now impacted onto the stem. The hip was again reduced. The hip was found to have good range of motion and good stability. Leg lengths were clinically equal. The wound was thoroughly irrigated. The capsule, piriformis and iliotibial band were closed with #1 Vicryl. Subcutaneous tissue was closed with 3-0 Vicryl. The skin was closed with rama. A sterile dressing was applied with [place]. The patient was placed into a knee immobilizer. The patient was awakened and transferred to the recovery room in stable condition. Needle and sponge counts were correct.
[2017-12-10] MEDS: Enoxaparin Inj 30 MG/0.3 ML Syringe SQ SCH ×2 (11:12→22:48)
[2017-12-10] MEDS ORDERED: Lidocaine PF 1% Inj 5 ML Syringe INFILTRATN ONE (12:00)
[2017-12-10] MEDS ORDERED: Glycopyrrolate Inj 1 MG/5 ML Syringe IV.PUSH ONE (12:00)
--- NOTE | 2017-12-10 12:05 | P.PN ---
Subjective Interval history: TRAUMA PTD: 4 10:00: In OR 11:30: In OR 1430: Pt lying in bed. No distress noted. No complaints offered. Pt wants to drink Ensure. Reminded him of need for nectar thick liquids. "NO thick. I don't want that. I am over-ruling the doctor." Physical Exam Vital signs: Vital Signs 12/09/17 12:00 12/09/17 13:00 12/09/17 14:00 Temperature Pulse Rate 75 74 82 Respiratory Rate 15 15 15 Blood Pressure 132/64 128/62 152/68 H Pulse Oximetry 98 100 98 12/09/17 16:00 12/09/17 20:00 12/09/17 21:10 Temperature 97.5 F L 98 F Pulse Rate 68 82 Respiratory Rate 18 18 Blood Pressure 152/72 H 147/70 H Pulse Oximetry 100 99 99 12/10/17 00:00 12/10/17 04:00 12/10/17 10:10 Temperature 97.4 F L 98 F 91.4 F L Pulse Rate 63 77 95 H Respiratory Rate 18 18 14 Blood Pressure 142/70 H 152/70 H 154/69 H Pulse Oximetry 98 99 97 12/10/17 10:15 12/10/17 10:30 12/10/17 10:45 Temperature 97.4 F L Pulse Rate 96 H 89 100 H Respiratory Rate 16 18 20 Blood Pressure 150/80 H 142/68 H 137/74 Pulse Oximetry 97 100 96 12/10/17 11:00 12/10/17 11:15 Temperature 97.4 F L 97.4 F L Pulse Rate 91 H 93 H Respiratory Rate 16 16 Blood Pressure 144/67 H 120/57 L Pulse Oximetry 95 98 Intake & Output 12/09/17 12/10/17 12/10/17 18:59 06:59 18:59 Intake Total 1586 / 1586 1000 / 1000 1810 / 1810 Output Total 650 / 650 800 / 800 675 / 675 Balance 936 / 936 200 / 200 1135 / 1135 Intake: IV 950 / 950 1000 / 1000 110 / 110 NS Inj 1,000 ML @ 100 mls/hr IV 950 / 950 1000 / 1000 .CONT .Q10H KETTY Rx#:[id number] Cyklokapron Inj 1,000 MG In NS 110 / 110 Inj 100 ML @ 220 mls/hr IV.SIG STAT STA Rx#:[id number] Oral 360 / 360 0 / 0 Anesthesia Amount 1700 / 1700 Intake (Blood Product) Amt 276 / 276 Plasma Thawed 5 Day Cp2d Unit 276 / 276 [id number] Output: Urine 800 / 800 Estimated Blood Loss 400 / 400 Urine Amount (Catheter) 650 / 650 275 / 275 Condom 650 / 650 Indwelling Urethral Catheter 275 / 275 Other: # Incontinent Voids 1 Date of Last Bowel Movement 12/06/17 # Bowel Movements 0 Narrative: GENERAL: This is a 87-year-old male lying in bed. No distress noted. SKIN: Warm and dry. Sacral ulcer noted. Skin tears to bilateral elbows. Fragile skin noted HEAD: Atraumatic. Normocephalic. EYES: PERRLA ENT: No nasal bleeding or discharge. Mucous membranes pink and moist. NECK: Lima J collar in place. Trachea midline. No JVD. CARDIOVASCULAR: Regular rate and rhythm. RESPIRATORY: No accessory muscle use. Lungs are clear to auscultation. Breath sounds equal bilaterally. No distress or dyspnea. GASTROINTESTINAL: BS + x 4 quads. Abdomen soft, non-tender, nondistended. MUSCULOSKELETAL: Extremities without cyanosis, or edema. + peripheral pulses x 4 extremities. Warm with good capillary refill and sensation. MAEW. NEUROLOGICAL: Awake and alert. Speech can be garbled at times. - Urinary Catheter Management Condom Cath placed during this visit: yes Reason for continuing: Hourly intake/output Insertion date: 12/10/17 Insertion time: 08:26 Indwelling Urethral Catheter Cath placed during this visit: yes Reason for continuing: Hourly intake/output Insertion date: 12/10/17 Insertion time: 08:26 Results - Labs CBC & Chem 7: 12/09/17 03:40 12/09/17 03:40 Laboratory Results - last 24 hr 12/09/17 12/10/17 13:22 04:15 PT 13.7 H 12.7 H INR 1.4 1.3 Assessment and Plan - Assessment (1) C6 cervical fracture Code(s): S12.500A - Unspecified displaced fracture of sixth cervical vertebra, initial encounter for closed fracture Status: Acute (2) Closed hip fracture Code(s): S72.009A - Fracture of unspecified part of neck of unspecified femur, initial encounter for closed fracture Status: Acute - Plan [place]: This is a 87 year old male who fell from a standing position. Reasonable LOC. was unable to pick him up but left him on the ground for a significant amount of time. He was a trauma transfer. Patient takes Coumadin at home. Initial INR 5.1. INJURIES: C6 fx (non-op) RIGHT femur fx PMHx: Hypothyroidism, HTN, HLD, Afib, cataracts, glaucoma Procedures: 12/10: RIGHT hip cemented bipolar hemiarthroplasty Consults: Neurosurgery. Orthopedics. Hospitalist. Wound care nurse. Case management. Diet: Regular mechanical soft diet with nectar thick liquids. Tolerating po diet. Encourage good po intake with each meal. Continue speech therapy evaluation Pulmonary: Encourage good pulmonary toileting. IS at bedside and pt encouraged to use. Rationale for use explained to patient, and verbalized understanding. PAIN Management: Percocet 5-7.5mg q4h. Valium 2 mg QD. Morphine 3 mg q 3h for breakthrough pain. Activity: BR. PT and OT ordered. (WBAT RLE) Lima J collar at all times GI prophylaxis: Protonix 40 mg po Bowel regimen: Kiara-colce. MOM. Lactulose. Senna PRN. Bisacodyl PRN. LBM: 0 DVT prophylaxis: Mechanical VTE with SCDs. Chemical management with Lovenox 40 mg QD SQ. DC Planning: Case management consulted for assistance with final discharge disposition. Patient will need SNF or rehab placement upon hospital discharge. Emotional support provided to patient and family at bedside and plan of care discussed. Discussed with RN at bedside. Discussed pt condition and plan of care with collaborating trauma surgeon. Patient is hemodynamically stable and being managed on the med/surg floor. The trauma team will round each day, and evaluate plan of care on a daily basis. C6 fx Neurosurgery consulted and assisting in management and care Nonoperative management at this time Supportive care Pain management Encourage out of bed PT and OT ordered WANDA J collar at all times Bowel regimen Lovenox for DVT prophylaxis RIGHT femur fx Orthopedics consulted and assisting in management care 12/10: RIGHT hip cemented bipolar hemiarthroplasty Supportive care Pain management Encourage out of bed PT and OT ordered WBAT RLE Bowel regimen Lovenox for DVT prophylaxis Hypothyroidism HTN HLD A. fib Cataracts Glaucoma Hospitalist consulted to assist with medical management Vital signs every 4 hours and as needed Resume home medications Lopressor 100 mg daily HCTZ 25 mg daily Pravachol Synthroid 75 mg daily Elevated INR on admission Administered vitamin K 2 FFP 2 units INR daily INR 1.3 today Orthopedics will proceed with surgery today Sacral ulcer stage II Elbows Right heel Bilateral buttocks Wound care consult Consult wound care nurse for skin/wound treatment recommendations 1.Please cleanse all open wounds with normal saline or wound cleanser with dressing changes. 2. Apply Versatel one to all open skin tears on L elbow, bilateral forearms, and R back cover with dry cover dressing secured with rolled gauze and tape. Please leave Versatel in place for one week and take of the direction of arrows placed. May change dry cover and rolled gauze PRN if saturated or dislodged. 3. Apply Optifoam gentle border 4x4 to L thigh wound and change dressing every 3 to 5 days or as needed if saturated or dislodged. 4. Apply Optifoam gentle 7x7 dressing inverted so that wider portion of dressing is distal. change dressing every 3 to 5 days or PRN saturated or dislodged. 5. Apply skin barrier film to R heel purple tissue and cover wound with dry gauze, secured with rolled gauze and tape. Change dressing BID. 6. Obtain [place] Airapy bed or K4 bed 7. Turn patient every 2 hours and PRN from L side to R side limiting time on back to P.T. and meals. (1) C6 cervical fracture Qualifiers: Encounter type: initial encounter Fracture type: closed Fracture morphology : other fracture Fracture alignment: displaced Qualified Code(s): S12.590A - Other displaced fracture of sixth cervical vertebra, initial encounter for closed fracture (2) Closed hip fracture Qualifiers: Encounter type: initial encounter Laterality: right Qualified Code(s): S72.001A - Fracture of unspecified part of neck of right femur, initial encounter for closed fracture
[2017-12-10] MEDS: hydroCHLOROthiazide 25 MG Tablet PO SCH (12:39)
[2017-12-10] MEDS: Ferrous Sulfate 325 MG Tablet PO SCH (12:39)
[2017-12-10] MEDS: Senna/Docusate Sodium 8.6/50 MG Tablet PO SCH ×2 (12:39→21:39)
[2017-12-10] MEDS: Latanoprost 0.005% Opth Drops 2.5 ML Bottle EACH EYE SCH (12:40)
[2017-12-10] MEDS: Ascorbic Acid 500 MG Tablet PO SCH (12:40)
--- NOTE | 2017-12-10 13:15 | P.PNIM ---
Subjective Interval history: sleepy but opens eyes and answers appropriately to questions. Just out of surgery and recovery in the room. Physical Exam Vital signs: Vital Signs 12/09/17 14:00 12/09/17 16:00 12/09/17 20:00 Temperature 97.5 F L 98 F Pulse Rate 82 68 82 Respiratory Rate 15 18 18 Blood Pressure 152/68 H 152/72 H 147/70 H Pulse Oximetry 98 100 99 12/09/17 21:10 12/10/17 00:00 12/10/17 04:00 Temperature 97.4 F L 98 F Pulse Rate 63 77 Respiratory Rate 18 18 Blood Pressure 142/70 H 152/70 H Pulse Oximetry 99 98 99 12/10/17 10:10 12/10/17 10:15 12/10/17 10:30 Temperature 91.4 F L Pulse Rate 95 H 96 H 89 Respiratory Rate 14 16 18 Blood Pressure 154/69 H 150/80 H 142/68 H Pulse Oximetry 97 97 100 12/10/17 10:45 12/10/17 11:00 12/10/17 11:15 Temperature 97.4 F L 97.4 F L 97.4 F L Pulse Rate 100 H 91 H 93 H Respiratory Rate 20 16 16 Blood Pressure 137/74 144/67 H 120/57 L Pulse Oximetry 96 95 98 12/10/17 12:00 Temperature Pulse Rate Respiratory Rate 16 Blood Pressure Pulse Oximetry Intake & Output 12/09/17 12/10/17 12/10/17 18:59 06:59 18:59 Intake Total 1586 / 1586 1000 / 1000 1810 / 1810 Output Total 650 / 650 800 / 800 675 / 675 Balance 936 / 936 200 / 200 1135 / 1135 Intake: IV 950 / 950 1000 / 1000 110 / 110 NS Inj 1,000 ML @ 100 mls/hr IV 950 / 950 1000 / 1000 .CONT .Q10H KETTY Rx#:[id number] Cyklokapron Inj 1,000 MG In NS 110 / 110 Inj 100 ML @ 220 mls/hr IV.SIG STAT STA Rx#:[id number] Oral 360 / 360 0 / 0 Anesthesia Amount 1700 / 1700 Intake (Blood Product) Amt 276 / 276 Plasma Thawed 5 Day Cp2d Unit 276 / 276 [id number] Output: Urine 800 / 800 Estimated Blood Loss 400 / 400 Urine Amount (Catheter) 650 / 650 275 / 275 Condom 650 / 650 Indwelling Urethral Catheter 275 / 275 Other: # Incontinent Voids 1 Date of Last Bowel Movement 12/06/17 # Bowel Movements 0 Narrative: GENERAL: Well-developed patient, in no apparent distress. alert and oriented x 3 NECK: Hard Collar in place CARDIOVASCULAR: Irregular rate and rhythm RESPIRATORY: Clear to auscultation. Breath sounds equal bilaterally. No wheezes , rales, or rhonchi. GASTROINTESTINAL: Abdomen soft, non-tender, nondistended. Normal active bowel sounds MUSCULOSKELETAL: Extremities without clubbing, cyanosis, or edema. NEURO: Alert & Oriented x4 to person, place, time, situation. Moves bilateral upper extremities. Moves left upper extremities but weakness in the right lower extremities - Urinary Catheter Management Condom Cath placed during this visit: yes Reason for continuing: Hourly intake/output Insertion date: 12/10/17 Insertion time: 08:26 Indwelling Urethral Catheter Cath placed during this visit: yes Reason for continuing: Hourly intake/output Insertion date: 12/10/17 Insertion time: 08:26 Results - Labs CBC & Chem 7: 12/09/17 03:40 12/09/17 03:40 Laboratory Results - last 24 hr 12/09/17 12/10/17 13:22 04:15 PT 13.7 H 12.7 H INR 1.4 1.3 Assessment and Plan - Plan 87-year-old white male on trauma service after he sustained a fall with C6 fracture and right femur fracture 1. Status post fall with secondary Horizontally oriented comminuted fracture extending on the superior aspect of the C6 vertebral body, disruption of the anterior longitudinal ligament and interspinous ligament injury, at this time Neurosurgery specialist Continue c-collar and consider treatment per neurosurgery and pain control and physical therapy. 2. Right femur fracturestatus post surgery with right hip bipolar hemiarthroplasty 3. Hypothyroidism to continue Synthroid 4. Atrial Fibrillation - Warfarin at this time on hold due to procedure, rate is controlled, will restart low-dose metoprolol 4. Hyperlipidemia continue Home statin 5. Hypokalemia replaced and following. 6. DVT prophylaxis with SCDs on Lovenox
--- NOTE | 2017-12-10 13:48 | XR ---
EXAM DATE: 12/10/2017 1:46 PM EDT AGE/SEX: 87 years / Male INDICATIONS: Post op right total hip arthroplasty. CLINICAL DATA: This is the patient's initial encounter. Patient reports that signs and symptoms have been present for 1 day and indicates a pain score of 2/10. MEDICAL/SURGICAL HISTORY: None. None. COMPARISON: No prior exams available for comparison. FINDINGS: Right total hip arthroplasty. Femoral and acetabular components are appropriately positioned without fracture. Superficial skin rama overlie the right hip. Multiple cortical densities projecting of t he pelvis suggest prior hernia repair CONCLUSION: Appropriate postoperative appearance of the right hip status post total arthroplasty. Electronically signed by: Shay Hammond MD 12/10/2017 1:47 PM EDT
[2017-12-10] MEDS: ceFAZolin Inj 2,000 MG in Sodium Chlor 0.9% Inj 80 ML IV.SIG SCH (18:33)
[2017-12-10] MEDS: Calcium/Vitamin D 250/125 MG Tablet PO SCH ×2 (18:38)
[2017-12-10] MEDS: Metoprolol Tartrate 25 MG Tablet PO SCH (21:39)
[2017-12-11] MEDS: ceFAZolin Inj 2,000 MG in Sodium Chlor 0.9% Inj 80 ML IV.SIG SCH ×2 (00:01→09:09)
[2017-12-11 04:16] LABS: Baso % (Auto) 0.3 % (0.0-2.0); Eos % (Auto) 0.2 % (0.0-4.0); Hematocrit 34.6 % (39.0-51.0); Hemoglobin 11.3 gm/dL (13.0-17.0); Lymph # (Auto) 0.2 th/mm3 (1.0-4.8); Lymph % (Auto) 1.3 % (9.0-44.0); Mean Corpuscular HGB Conc 32.7 % (32.0-36.0); Mean Corpuscular Hemoglobin 29.5 pg (27.0-34.0); Mean Corpuscular Volume 90.3 fL (80.0-100.0); Mean Platelet Volume 9.1 fL (7.0-11.0); Mono % (Auto) 6.6 % (0.0-8.0); Neut # (Auto) 14.5 th/mm3 (1.8-7.7); Neut % (Auto) 91.6 % (16.0-70.0); Platelet Count 387 th/mm3 (150-450); Red Blood Count 3.83 mil/mm3 (4.50-5.90); Red Cell Distribution Width 17.7 % (11.6-17.2); White Blood Count 15.9 th/mm3 (4.0-11.0)
[2017-12-11 04:34] LABS: Calcium 8.2 mg/dL (8.5-10.1); Carbon Dioxide 31.6 meq/L (21.0-32.0); Potassium 3.8 meq/L (3.5-5.1)
[2017-12-11 04:45] LABS: INR 1.2 Ratio
[2017-12-11] MEDS ORDERED: Bisacodyl 10 MG Supp RECTAL ONE (07:00)
--- NOTE | 2017-12-11 07:01 | P.PNOP ---
Subjective Interval history: POD 1 s/p right hip hemiarthroplasty doing well. pain controlled. no new complaints. Physical Exam Vital signs: Vital Signs 12/10/17 10:10 12/10/17 10:15 12/10/17 10:30 Temperature 91.4 F L Pulse Rate 95 H 96 H 89 Respiratory Rate 14 16 18 Blood Pressure 154/69 H 150/80 H 142/68 H Pulse Oximetry 97 97 100 12/10/17 10:45 12/10/17 11:00 12/10/17 11:15 Temperature 97.4 F L 97.4 F L 97.4 F L Pulse Rate 100 H 91 H 93 H Respiratory Rate 20 16 16 Blood Pressure 137/74 144/67 H 120/57 L Pulse Oximetry 96 95 98 12/10/17 12:00 12/10/17 16:00 12/10/17 16:01 Temperature 98 F Pulse Rate 86 Respiratory Rate 16 19 Blood Pressure 138/58 L Pulse Oximetry 97 98 12/10/17 20:00 12/11/17 00:00 12/11/17 04:00 Temperature 98.7 F 98.8 F 98.4 F Pulse Rate 68 68 72 Respiratory Rate 18 16 18 Blood Pressure 153/70 H 135/71 131/70 Pulse Oximetry 96 99 95 Intake & Output 12/10/17 12/10/17 12/11/17 06:59 18:59 06:59 Intake Total 1000 / 1000 2310 / 2310 100 / 100 Output Total 800 / 800 675 / 675 600 / 600 Balance 200 / 200 1635 / 1635 -500 / -500 Intake: IV 1000 / 1000 210 / 210 100 / 100 NS Inj 1,000 ML @ 100 mls/hr IV 1000 / 1000 .CONT .Q10H KETTY Rx#:[id number] Cyklokapron Inj 1,000 MG In NS 110 / 110 Inj 100 ML @ 220 mls/hr IV.SIG STAT STA Rx#:[id number] Ancef Inj 2,000 MG In NS Inj 80 100 / 100 100 / 100 ML @ 200 mls/hr IV.SIG Q8H KETTY Rx#:[id number] Oral 0 / 0 400 / 400 Anesthesia Amount 1700 / 1700 Output: Urine 800 / 800 600 / 600 Estimated Blood Loss 400 / 400 Urine Amount (Catheter) 275 / 275 Indwelling Urethral Catheter 275 / 275 Other: # Voids 0 # Bowel Movements 0 Narrative: RLE: dressings clean and dry. intact. +CKS. NVI. strong dorsiflexion with minimal discomfort. - Urinary Catheter Management Condom Cath placed during this visit: yes Reason for continuing: Hourly intake/output Insertion date: 12/10/17 Insertion time: 08:26 Indwelling Urethral Catheter Cath placed during this visit: yes Reason for continuing: Hourly intake/output Insertion date: 12/10/17 Insertion time: 08:26 Results - Labs CBC & Chem 7: 12/11/17 03:46 12/11/17 03:46 Laboratory Results - last 24 hr 12/11/17 12/11/17 12/11/17 03:46 03:46 03:46 WBC 15.9 H RBC 3.83 L Hgb 11.3 L Hct 34.6 L MCV 90.3 MCH 29.5 MCHC 32.7 RDW 17.7 H Plt Count 387 MPV 9.1 Neut % (Auto) 91.6 H Lymph % (Auto) 1.3 L [place] % (Auto) 6.6 Eos % (Auto) 0.2 Baso % (Auto) 0.3 Neut # (Auto) 14.5 H Lymph # (Auto) 0.2 L [place] # (Auto) 1.0 H Eos # (Auto) 0.0 Baso # (Auto) 0.0 WBC Differential . Differential Comment Auto diff final PT 12.0 H INR 1.2 Sodium 151 H Potassium 3.8 Chloride 112 H Carbon Dioxide 31.6 Anion Gap 7 BUN 31 H Creatinine 0.98 Estimated GFR 72 L Random Glucose 157 H Calcium 8.2 L - Imaging Impressions Hip X-Ray 12/10/17 09:44 CONCLUSION: Appropriate postoperative appearance of the right hip status post total arthroplasty. Assessment and Plan - Assessment and Plan 1) Right hip hemiarthroplasty - POD 1 -WBAT -posterior hip precautions -knee brace while in bed -daily dressing changes with primapore/coverderm. begin adding bacitracin on POD 10 -DVT prophylaxis -CM for DC planning --> home with [facility] vs SNF -ortho surgeries complete -follow up with [facility] or [facility] in 2 weeks [facility] Prescription Drug Monitoring Database has been queried and verified prior to prescribing the controlled substance. Acute pain exception. This patient has normal, predicted, physiological, and time limited response to an adverse mechanical stimulus associated with surgery, trauma, or acute illness as described in my notes. There is a lack of alternative treatment options other than to include the prescribed narcotic treatment for this condition.
[2017-12-11] MEDS: Levothyroxine 75 MCG Tablet PO SCH (07:25)
[2017-12-11] MEDS: Sod Chloride 0.9% Inj 1,000 ML IV.CONT SCH ×2 (08:20→17:56)
[2017-12-11] MEDS: hydroCHLOROthiazide 25 MG Tablet PO SCH (09:07)
[2017-12-11] MEDS: Latanoprost 0.005% Opth Drops 2.5 ML Bottle EACH EYE SCH (09:07)
[2017-12-11] MEDS: Enoxaparin Inj 40 MG/0.4 ML Syringe SQ SCH (09:07)
[2017-12-11] MEDS: Calcium/Vitamin D 250/125 MG Tablet PO SCH ×3 (09:07→19:10)
[2017-12-11] MEDS: Senna/Docusate Sodium 8.6/50 MG Tablet PO SCH ×2 (09:07→22:38)
[2017-12-11] MEDS: Ferrous Sulfate 325 MG Tablet PO SCH (09:07)
[2017-12-11] MEDS: Ascorbic Acid 500 MG Tablet PO SCH (09:07)
[2017-12-11] MEDS: Metoprolol Tartrate 25 MG Tablet PO SCH ×2 (09:07→22:34)
--- NOTE | 2017-12-11 12:24 | P.PNIM ---
Subjective Interval history: Pain control. Sitting up in chair Physical Exam Vital signs: Vital Signs 12/10/17 16:00 12/10/17 16:01 12/10/17 20:00 Temperature 98 F 98.7 F Pulse Rate 86 68 Respiratory Rate 19 18 Blood Pressure 138/58 L 153/70 H Pulse Oximetry 97 98 96 12/11/17 00:00 12/11/17 04:00 12/11/17 08:00 Temperature 98.8 F 98.4 F 98.1 F Pulse Rate 68 72 66 Respiratory Rate 16 18 19 Blood Pressure 135/71 131/70 132/63 Pulse Oximetry 99 95 97 Intake & Output 12/10/17 12/11/17 12/11/17 18:59 06:59 18:59 Intake Total 2310 / 2310 100 / 100 840 / 840 Output Total 675 / 675 600 / 600 Balance 1635 / 1635 -500 / -500 840 / 840 Intake: IV 210 / 210 100 / 100 600 / 600 LR 1000 mL Inj 1,000 ML @ 50 500 / 500 mls/hr IV.CONT .Q20H KETTY Rx#: [id number] Cyklokapron Inj 1,000 MG In NS 110 / 110 Inj 100 ML @ 220 mls/hr IV.SIG STAT STA Rx#:[id number] Ancef Inj 2,000 MG In NS Inj 80 100 / 100 100 / 100 100 / 100 ML @ 200 mls/hr IV.SIG Q8H KETTY Rx#:[id number] Oral 400 / 400 240 / 240 Anesthesia Amount 1700 / 1700 Output: Urine 600 / 600 Estimated Blood Loss 400 / 400 Urine Amount (Catheter) 275 / 275 Indwelling Urethral Catheter 275 / 275 Other: # Voids 0 Date of Last Bowel Movement 12/09/17 # Bowel Movements 0 Narrative: GENERAL: This is a well-nourished, well-developed patient, in no apparent distress. HEENT: C-collar in place CARDIOVASCULAR: Regular rate and rhythm RESPIRATORY: Clear to auscultation. Breath sounds equal bilaterally. No wheezes , rales, or rhonchi. GASTROINTESTINAL: Abdomen soft, non-tender, nondistended. Normal active bowel sounds MUSCULOSKELETAL: Right hip bandage clean dry intact NEURO: Alert & Oriented x4 to person, place, time, situation. - Urinary Catheter Management Condom Cath placed during this visit: yes Reason for continuing: Hourly intake/output Insertion date: 12/10/17 Insertion time: 08:26 Indwelling Urethral Catheter Cath placed during this visit: yes Reason for continuing: Severe pressure ulcer/wound Insertion date: 12/10/17 Insertion time: 08:26 Results - Labs CBC & Chem 7: 12/11/17 03:46 12/11/17 03:46 Laboratory Results - last 24 hr 12/11/17 12/11/17 12/11/17 03:46 03:46 03:46 WBC 15.9 H RBC 3.83 L Hgb 11.3 L Hct 34.6 L MCV 90.3 MCH 29.5 MCHC 32.7 RDW 17.7 H Plt Count 387 MPV 9.1 Neut % (Auto) 91.6 H Lymph % (Auto) 1.3 L [place] % (Auto) 6.6 Eos % (Auto) 0.2 Baso % (Auto) 0.3 Neut # (Auto) 14.5 H Lymph # (Auto) 0.2 L [place] # (Auto) 1.0 H Eos # (Auto) 0.0 Baso # (Auto) 0.0 WBC Differential . Differential Comment Auto diff final PT 12.0 H INR 1.2 Sodium 151 H Potassium 3.8 Chloride 112 H Carbon Dioxide 31.6 Anion Gap 7 BUN 31 H Creatinine 0.98 Estimated GFR 72 L Random Glucose 157 H Calcium 8.2 L - Imaging Impressions Hip X-Ray 12/10/17 09:44 CONCLUSION: Appropriate postoperative appearance of the right hip status post total arthroplasty. Assessment and Plan - Plan 87-year-old white male on trauma service after he sustained a fall with C6 fracture and right femur fracture Continue current management. 1. Status post fall with secondary Horizontally oriented comminuted fracture extending on the superior aspect of the C6 vertebral body, disruption of the anterior longitudinal ligament and interspinous ligament injury, at this time Neurosurgery specialist Continue c-collar and consider treatment per neurosurgery and pain control and physical therapy. 2. Right femur fracturestatus post operative day #1 right hip bipolar hemiarthroplasty 3. Hypothyroidism to continue Synthroid 4. Atrial Fibrillation - Warfarin at this time on hold due to procedure, rate is controlled, will restart low-dose metoprolol 5. Hyperlipidemia continue Home statin 6. Hypokalemia replaced and following. 7. DVT prophylaxis with SCDs on Lovenox
--- NOTE | 2017-12-11 15:03 | P.PNPAL ---
Reason for Visit Reason for visit: a. To assist with evaluation and management of symptoms including:cough, pain, dysphagia b. To assist medical decision maker(s) with: better understanding of current medical conditions; weighing benefits/burdens of medical treatment options; making medical treatment decisions. Subjective Subjective/Interval History: Patient seen today to follow-up on comfort, pain following surgical repair of hip. Status post Right hip cemented bipolar hemiarthroplasty, yesterday 12/10/17. Tolerated procedure well. No on orthopedic unit. H&H stable. WBC slightly elevated ST continues to follow patient noted today to continue to have evidence of severe dysphasia. Patient has been ordered on a soft diet with nectar thick liquids per physician however speech therapist has previously recommended nothing by mouth. Patient continues to endorse dysphagia is really just a cough secondary to chronic postnasal drip and allergies. Out of bed with PT today, 2 person assist able to take a few steps to bedside chair, hip precautions. Patient seen in room no visitors present. He indicates his was in earlier to see him but that she does not like to drive down from [place]. He has updated her. He remembers me from the other day the purpose of my visit or what we discussed. Review with him our discussion about his conditions and CODE STATUS and that he wanted DNR. He affirms this. Oriented 3, appropriate. Understands he underwent hip surgery yesterday. Was told hip surgery went well. Indicates pain overall is "not bad". He retells me that he was told they could not intubate him secondary to concern for spinal cord injury from his broken neck. He understands that he has a fracture and he must wear the collar for some time. He seems to have fairly reasonable understanding of his conditions. I did explore with him dysphasia and speech therapy recommendations he indicates he does not want to thicken stuff, but he knows what he is doing he has had that cough forever and that he will eat and drink what he wants. He likes the Ensure. Denies any GI complaints. Denies any shortness of breath or cough other than from his postnasal drip. Of note he has not had a BM since admission, he tells me that he had one before he got on the ambulance to come to the hospital. He has now been here for 4 days without a BM, and on pain regimen. He is on scheduled senna however has refused dulcolax, lactulose. Advised that constipation and bowel issue is a big risk post procedure and especially with being on pain medication utilize laxative, softeners to facilitate bowel movement. He tells me that his bowels feel fine and that he does not feel that he is constipated. . Objective Vital Signs: Vital Signs 12/10/17 16:00 12/10/17 16:01 12/10/17 20:00 Temperature 98 F 98.7 F Pulse Rate 86 68 Respiratory Rate 19 18 Blood Pressure 138/58 L 153/70 H Pulse Oximetry 97 98 96 12/11/17 00:00 12/11/17 04:00 12/11/17 08:00 Temperature 98.8 F 98.4 F 98.1 F Pulse Rate 68 72 66 Respiratory Rate 16 18 19 Blood Pressure 135/71 131/70 132/63 Pulse Oximetry 99 95 97 12/11/17 12:00 Temperature 98.0 F Pulse Rate 67 Respiratory Rate 12 Blood Pressure 100/57 L Pulse Oximetry 97 Intake & Output 12/10/17 12/11/17 12/11/17 18:59 06:59 18:59 Intake Total 2310 / 2310 100 / 100 840 / 840 Output Total 675 / 675 600 / 600 Balance 1635 / 1635 -500 / -500 840 / 840 Intake: IV 210 / 210 100 / 100 600 / 600 LR 1000 mL Inj 1,000 ML @ 50 500 / 500 mls/hr IV.CONT .Q20H KETTY Rx#: [id number] Cyklokapron Inj 1,000 MG In NS 110 / 110 Inj 100 ML @ 220 mls/hr IV.SIG STAT STA Rx#:[id number] Ancef Inj 2,000 MG In NS Inj 80 100 / 100 100 / 100 100 / 100 ML @ 200 mls/hr IV.SIG Q8H KETTY Rx#:[id number] Oral 400 / 400 240 / 240 Anesthesia Amount 1700 / 1700 Output: Urine 600 / 600 Estimated Blood Loss 400 / 400 Urine Amount (Catheter) 275 / 275 Indwelling Urethral Catheter 275 / 275 Other: # Voids 0 Date of Last Bowel Movement 12/09/17 # Bowel Movements 0 Physical Exam: CONSTITUTIONAL/GENERAL: This is a thin, frail appearing elderly patient. Alert no acute distress TUBES/LINES/DRAINS: Peripheral IV bilateral upper extremity, nasal cannula O2, SCDs, [place] J collar in place SKIN: No jaundice, rashes, or lesions. Several areas ecchymoses on upper extremities. Dressings to bilateral arms clean and dry. dressing rt hip. Skin warm and dry.Chronic vascular changes lower extremities--varicosities, many telangiectasis , some slight rubor noted. ENT: Hearing grossly normal. Nose without bleeding or purulent drainage. Throat without visible erythema, exudates, masses, or lesions. Mucous membranes very dry. CARDIOVASCULAR: Irregular rate and rhythm. No murmur. no JVD. Peripheral pulses symmetric. Chronic vascular changes lower extremities--varicosities, many telangiectasis , some slight rubor noted. RESPIRATORY/CHEST: Symmetric, unlabored respirations. On 2 L per .clear to auscultation. Breath sounds equal bilaterally. GASTROINTESTINAL: Abdomen soft, flat, non-tender, nondistended. No hepato- splenomegaly, or palpable masses. No guarding. Bowel sounds present. GENITOURINARY: Without palpable bladder distension. MUSCULOSKELETAL: Extremities without clubbing, cyanosis . Left lower arm , hand with edema. no joint effusion noted. NEUROLOGICAL: Awake and alert.Oriented x3. Appropriate, appears to have reasonable insight and judgment. Motor and sensory grossly within normal limits. Follows commands. Cognitively sharp. Moves all extremities. PSYCHIATRIC: No obvious anxiety/depression. no apparent hallucinations or other psychotic thought process. Diagnostic Tests Laboratory: Laboratory Results - last 72 hr 12/08/17 12/08/17 12/09/17 12:04 18:12 03:40 WBC 15.3 H RBC 4.01 L Hgb 11.8 L Hct 35.4 L MCV 88.4 MCH 29.4 MCHC 33.2 RDW 16.9 Plt Count 357 MPV 9.3 Neut % (Auto) 90.1 H Lymph % (Auto) 2.2 L [place] % (Auto) 7.2 Eos % (Auto) 0.3 Baso % (Auto) 0.2 Neut # (Auto) 13.7 H Lymph # (Auto) 0.3 L [place] # (Auto) 1.1 H Eos # (Auto) 0.1 Baso # (Auto) 0.0 WBC Differential . Differential Comment Auto diff final PT 19.7 H D INR 1.9 Sodium Potassium Chloride Carbon Dioxide Anion Gap BUN Creatinine Estimated GFR Random Glucose Calcium Total Bilirubin AST ALT Alkaline Phosphatase Total Protein Albumin Blood Bank Comment 12/09/17 12/09/17 12/09/17 03:40 03:40 06:18 WBC RBC Hgb Hct MCV MCH MCHC RDW Plt Count MPV Neut % (Auto) Lymph % (Auto) [place] % (Auto) Eos % (Auto) Baso % (Auto) Neut # (Auto) Lymph # (Auto) [place] # (Auto) Eos # (Auto) Baso # (Auto) WBC Differential Differential Comment PT 15.8 H INR 1.6 Sodium 149 H Potassium 3.4 L Chloride 110 H Carbon Dioxide 31.9 Anion Gap 7 BUN 42 H Creatinine 1.11 Estimated GFR 63 L Random Glucose 103 Calcium 8.4 L Total Bilirubin 1.2 H AST 19 ALT 24 Alkaline Phosphatase 87 Total Protein 6.0 L Albumin 2.5 L Blood Bank Comment 12/09/17 12/10/17 12/11/17 13:22 04:15 03:46 WBC RBC Hgb Hct MCV MCH MCHC RDW Plt Count MPV Neut % (Auto) Lymph % (Auto) [place] % (Auto) Eos % (Auto) Baso % (Auto) Neut # (Auto) Lymph # (Auto) [place] # (Auto) Eos # (Auto) Baso # (Auto) WBC Differential Differential Comment PT 13.7 H 12.7 H 12.0 H INR 1.4 1.3 1.2 Sodium Potassium Chloride Carbon Dioxide Anion Gap BUN Creatinine Estimated GFR Random Glucose Calcium Total Bilirubin AST ALT Alkaline Phosphatase Total Protein Albumin Blood Bank Comment 12/11/17 12/11/17 03:46 03:46 WBC 15.9 H RBC 3.83 L Hgb 11.3 L Hct 34.6 L MCV 90.3 MCH 29.5 MCHC 32.7 RDW 17.7 H Plt Count 387 MPV 9.1 Neut % (Auto) 91.6 H Lymph % (Auto) 1.3 L [place] % (Auto) 6.6 Eos % (Auto) 0.2 Baso % (Auto) 0.3 Neut # (Auto) 14.5 H Lymph # (Auto) 0.2 L [place] # (Auto) 1.0 H Eos # (Auto) 0.0 Baso # (Auto) 0.0 WBC Differential . Differential Comment Auto diff final PT INR Sodium 151 H Potassium 3.8 Chloride 112 H Carbon Dioxide 31.6 Anion Gap 7 BUN 31 H Creatinine 0.98 Estimated GFR 72 L Random Glucose 157 H Calcium 8.2 L Total Bilirubin AST ALT Alkaline Phosphatase Total Protein Albumin Blood Bank Comment Result Diagrams: 12/11/17 03:46 12/11/17 03:46 Imaging: Impressions Hip X-Ray 12/10/17 09:44 CONCLUSION: Appropriate postoperative appearance of the right hip status post total arthroplasty. Procedures: 12/10/17 Right hip cemented bipolar hemiarthroplasty Assessment and Plan - Disease Oriented Problem List (1) C6 cervical fracture (2) Rhabdomyolysis (3) Closed hip fracture (4) Dehydration (5) A-fib (6) Hypothyroid (7) Hyperlipidemia Pertinent Non-Medical Issues: Psychosocial: Patient originally from [facility]. 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 Retired to [place] in 1997. to his for many years. They have no children though they have a cat named Farhad. Spiritual: Quaker though no particular affiliation does not want trans router visit Legal: Patient currently alert, oriented incapacitated appears to have reasonable insight into conditions. Appears able to make his own decisions. He does not have a living will or health care surrogate. Per [place] statute his would be appropriate legal proxy if he should become incapacitated. He is in agreement with this. Ethical issues impacting care: No ethical issues identified Important Contacts: Christina Henderson [phone] Prognosis: This unfortunate patient was admitted as a transfer from [facility],after sustaining a hip fracture, as well as C-spine fracture secondary to a fall sustained at home. He is not a candidate for operative management of C6 fracture due to comorbidities, age. He is recommended for management with cervical collar, though it is noted that fracture is considered unstable. He is high risk for spinal cord compromise secondary to this. He also has a right hip fracture which is recommended for surgical intervention per ortho once INR normalized. He is high risk for postoperative complications secondary to immobility, debilitated nutritional status, and advanced age. He may be appropriate for hospice if goals were comfort oriented. Code Status: No Code DNR Plan: Legal decision maker:Patient currently alert, oriented incapacitated appears to have reasonable insight into conditions. Appears able to make his own decisions. He does not have a living will or health care surrogate. Per [place] statute his would be appropriate legal proxy if he should become incapacitated. He is in agreement with this Goals: Patient goals are semi-aggressive short of DNR/resuscitation. He wishes to pursue rehabilitation efforts to restore to his prior level of function. He does not want CPR or other heroic measures should his condition deteriorate. He wishes to consume PO food/fluids without thickened restrictions. CODE STATUS: DNR SYMPTOMS: --Pain-patient admitted with right hip fracture, C6 fracture. Endorses some neck and hip pain which he indicates is "not too bad "and well managed with his current prn regimen. No chronic pain reported. has used PRN percocet 5mg x2, 7mg x1 in the past 24 hr. --Cough/dyspnea-patient reports chronic intermittent cough he relates to postnasal drip. This occurred during ST evaluation with any taking of fluids some concern for aspiration/dysphagia. Patient endorsing that he has had this cough for a long time secondary to allergies. High risk for pneumonia, dyspnea, respiratory deterioration postoperatively. --Dysphagia-concern for possible dysphasia per ST evaluation noted with significant coughing with any fluids the patient attributes this to postnasal drip and allergies and relates cough is chronic. Possible he may be having some chronic dysphagia and aspiration though chest x-ray does not indicate any acute process. We will continue to evaluate. Patient has requested to be allowed to have diet as he will tolerate, does not want thickened restrictions -- constipation- no BM since admission here, 4 days. indicates he had one before ambulance (not clear if ambulance from home or [place] hospital) has been refusing PRN laxative,softner. on scheduled senna. D/w him risk of constipation 2/2 pain medication and need to use PRNs, he does not feel he is constipated. Palliative care will continue to follow during hospital course as condition evolves, to assist patient/decision-maker with understanding of medical conditions, weighing benefits/burdens of treatment options, for clarification of goals of treatment. Additionally will assist with any symptoms of palliative concern Attestation Attestation: To help prompt me to consider important information that might be impacting today's encounter and assessment, information from prior notes written by myself or my colleagues may have been "brought forward" into today's note. My signature on this note, however, is an attestation that I personally performed the exam, history, and/or decision-making noted today, and, unless otherwise indicated, the interactions with patient, family, and staff as well as the review of records all occurred today. I also attest that the listed assessment and stated plan reflect my best clinical judgment today based on the combination of historical information, prior notes, and today's exam/ interactions. When time spent is documented, it refers only to time spent today by the signer, or if indicated, combined time spent today by collaborating physician/nurse practitioner.
--- NOTE | 2017-12-11 17:40 | P.PN ---
Subjective Interval history: No BM yet per nursing although patient reports he had a BM last night Pain controlled Prefers to go home at discharge Physical Exam Vital signs: Vital Signs 12/10/17 20:00 12/11/17 00:00 12/11/17 04:00 Temperature 98.7 F 98.8 F 98.4 F Pulse Rate 68 68 72 Respiratory Rate 18 16 18 Blood Pressure 153/70 H 135/71 131/70 Pulse Oximetry 96 99 95 12/11/17 08:00 12/11/17 12:00 12/11/17 16:35 Temperature 98.1 F 98.0 F Pulse Rate 66 67 Respiratory Rate 19 12 Blood Pressure 132/63 100/57 L Pulse Oximetry 97 97 97 Intake & Output 12/10/17 12/11/17 12/11/17 18:59 06:59 18:59 Intake Total 2310 / 2310 100 / 100 1840 / 1840 Output Total 675 / 675 600 / 600 Balance 1635 / 1635 -500 / -500 1840 / 1840 Intake: IV 210 / 210 100 / 100 1600 / 1600 LR 1000 mL Inj 1,000 ML @ 50 1500 / 1500 mls/hr IV.CONT .Q20H KETTY Rx#: [id number] Cyklokapron Inj 1,000 MG In NS 110 / 110 Inj 100 ML @ 220 mls/hr IV.SIG STAT STA Rx#:[id number] Ancef Inj 2,000 MG In NS Inj 80 100 / 100 100 / 100 100 / 100 ML @ 200 mls/hr IV.SIG Q8H KETTY Rx#:[id number] Oral 400 / 400 240 / 240 Anesthesia Amount 1700 / 1700 Output: Urine 600 / 600 Estimated Blood Loss 400 / 400 Urine Amount (Catheter) 275 / 275 Indwelling Urethral Catheter 275 / 275 Other: # Voids 0 Date of Last Bowel Movement 12/09/17 # Bowel Movements 0 Narrative: GENERAL: 87 year old elderly male OOB in chair. SKIN: Warm and dry. HEAD:Normocephalic. ENT: No nasal bleeding or discharge. Mucous membranes pink and moist. NECK: Trachea midline. No JVD. [place] J collar. CARDIOVASCULAR: Regular rate and rhythm. RESPIRATORY: No accessory muscle use. Clear to auscultation. Breath sounds equal bilaterally. GASTROINTESTINAL: Abdomen soft, non-tender, nondistended. + BS MUSCULOSKELETAL: Extremities without cyanosis, +2 BLE edema. MAEW, + perfused NEUROLOGICAL: Awake and alert. Normal speech. - Urinary Catheter Management Condom Cath placed during this visit: yes Reason for continuing: Hourly intake/output Insertion date: 12/10/17 Insertion time: 08:26 Indwelling Urethral Catheter Cath placed during this visit: yes Reason for continuing: Severe pressure ulcer/wound Insertion date: 12/10/17 Insertion time: 08:26 Results - Labs CBC & Chem 7: 12/11/17 03:46 12/11/17 03:46 Laboratory Results - last 24 hr 12/11/17 12/11/17 12/11/17 03:46 03:46 03:46 WBC 15.9 H RBC 3.83 L Hgb 11.3 L Hct 34.6 L MCV 90.3 MCH 29.5 MCHC 32.7 RDW 17.7 H Plt Count 387 MPV 9.1 Neut % (Auto) 91.6 H Lymph % (Auto) 1.3 L [place] % (Auto) 6.6 Eos % (Auto) 0.2 Baso % (Auto) 0.3 Neut # (Auto) 14.5 H Lymph # (Auto) 0.2 L [place] # (Auto) 1.0 H Eos # (Auto) 0.0 Baso # (Auto) 0.0 WBC Differential . Differential Comment Auto diff final PT 12.0 H INR 1.2 Sodium 151 H Potassium 3.8 Chloride 112 H Carbon Dioxide 31.6 Anion Gap 7 BUN 31 H Creatinine 0.98 Estimated GFR 72 L Random Glucose 157 H Calcium 8.2 L Assessment and Plan - Assessment (1) C6 cervical fracture Code(s): S12.500A - Unspecified displaced fracture of sixth cervical vertebra, initial encounter for closed fracture Status: Acute (2) Closed hip fracture Code(s): S72.009A - Fracture of unspecified part of neck of unspecified femur, initial encounter for closed fracture Status: Acute - Plan [place]:Fell from standing position, ? LOC. was unable to pick him up but left him on the ground for a significant amount of time. Trauma transfer. Takes coumadin at home, INR 5.1. INJURIES: C6 fx (non-op) RIGHT femur fx PMHx: Hypothyroidism, HTN, HLD, Afib, cataracts, glaucoma 12/10: RIGHT hip cemented bipolar hemiarthroplasty C6 fx Neurosurgery consulted Nonoperative management Pain control Bowel regimen OOB-PT and OT ordered Maintain Ashe J Bowel regimen Lovenox RIGHT femur fx Orthopedics consulted and assisting in management care 12/10: RIGHT hip cemented bipolar hemiarthroplasty Supportive care Pain control Bowel regimen OOB-PT and OT ordered WBAT RLE Lovenox Supratherapeutic INR 12/08: Vitamin K 2, FFP 2 units INR 1.3 today Hospitalist consulted for medical management Pressure ulcers 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 Collaborating Trauma MD agrees with plan. Case management consulted to assist with discharge planning. Patient is clear from Trauma surgery standpoint [facility] but he refused placement and it is unsafe for patient to go home at this time. - Attending Attestation The exam, history, and the medical decision-making described in the above note were completed with the assistance of the mid-level provider. I reviewed and agree with the findings presented. I attest that I had a [id number] encounter with the patient on the same day, and personally performed and documented my assessment and findings in the medical record. (1) C6 cervical fracture Qualifiers: Encounter type: initial encounter Fracture type: closed Fracture morphology : other fracture Fracture alignment: displaced Qualified Code(s): S12.590A - Other displaced fracture of sixth cervical vertebra, initial encounter for closed fracture (2) Closed hip fracture Qualifiers: Encounter type: initial encounter Laterality: right Qualified Code(s): S72.001A - Fracture of unspecified part of neck of right femur, initial encounter for closed fracture
--- NOTE | 2017-12-11 22:27 | P.PNNS ---
Subjective Interval history: Underwent hip surgery uneventfully Physical Exam Vital signs: Vital Signs 12/11/17 00:00 12/11/17 04:00 12/11/17 08:00 Temperature 98.8 F 98.4 F 98.1 F Pulse Rate 68 72 66 Respiratory Rate 16 18 19 Blood Pressure 135/71 131/70 132/63 Pulse Oximetry 99 95 97 12/11/17 12:00 12/11/17 16:00 12/11/17 16:35 Temperature 98.0 F 98.3 F Pulse Rate 67 65 Respiratory Rate 12 12 Blood Pressure 100/57 L 119/56 L Pulse Oximetry 97 100 97 12/11/17 20:00 Temperature 97.8 F Pulse Rate 77 Respiratory Rate 18 Blood Pressure 120/59 L Pulse Oximetry 99 Intake & Output 12/11/17 12/11/17 12/12/17 06:59 18:59 06:59 Intake Total 100 / 100 1840 / 1840 Output Total 600 / 600 Balance -500 / -500 1840 / 1840 Intake: IV 100 / 100 1600 / 1600 LR 1000 mL Inj 1,000 ML @ 50 1500 / 1500 mls/hr IV.CONT .Q20H KETTY Rx#: [id number] Ancef Inj 2,000 MG In NS Inj 80 100 / 100 100 / 100 ML @ 200 mls/hr IV.SIG Q8H KETTY Rx#:[id number] Oral 240 / 240 Output: Urine 600 / 600 Other: Date of Last Bowel Movement 12/09/17 Narrative: A&O x 3 CN II-XII intact Motor 5/5 UE/LE No neck pain - Urinary Catheter Management Condom Cath placed during this visit: yes Reason for continuing: Hourly intake/output Insertion date: 12/10/17 Insertion time: 08:26 Indwelling Urethral Catheter Cath placed during this visit: yes Reason for continuing: Severe pressure ulcer/wound Insertion date: 12/10/17 Insertion time: 08:26 Assessment and Plan - Assessment (1) C6 cervical fracture Code(s): S12.500A - Unspecified displaced fracture of sixth cervical vertebra, initial encounter for closed fracture Status: Acute Qualifiers: Encounter type: initial encounter Fracture type: closed Fracture morphology: other fracture Fracture alignment: displaced Qualified Code(s): S12.590A - Other displaced fracture of sixth cervical vertebra, initial encounter for closed fracture - Plan Mr. Henderson is an 87 y/o male who had a fall on 12/02. He is neurologically intact. He presented via EMS to an outside hospital on 12/06. Trauma evaluation demonstrates a two column injury C6 fracture. Plan: [place] J cervical collar at all times. F/u 6 weeks (Nancy) with repeat C-spine xrays at that time
[2017-12-12] MEDS: Sod Chloride 0.9% Inj 1,000 ML IV.CONT SCH (03:00)
[2017-12-12] MEDS: Levothyroxine 75 MCG Tablet PO SCH (05:37)
--- NOTE | 2017-12-12 06:18 | P.PNOP ---
Subjective Interval history: POD 2 s/p right hip hemiarthroplasty patient very agitated last night according to nurses. resting comfortably currently Physical Exam Vital signs: Vital Signs 12/11/17 08:00 12/11/17 12:00 12/11/17 16:00 Temperature 98.1 F 98.0 F 98.3 F Pulse Rate 66 67 65 Respiratory Rate 19 12 12 Blood Pressure 132/63 100/57 L 119/56 L Pulse Oximetry 97 97 100 12/11/17 16:35 12/11/17 20:00 12/12/17 00:00 Temperature 97.8 F 97.7 F Pulse Rate 73 73 Respiratory Rate 18 20 Blood Pressure 120/59 L 119/55 L Pulse Oximetry 97 99 97 Intake & Output 12/11/17 12/11/17 12/12/17 06:59 18:59 06:59 Intake Total 100 / 100 1840 / 1840 Output Total 600 / 600 Balance -500 / -500 1840 / 1840 Intake: IV 100 / 100 1600 / 1600 LR 1000 mL Inj 1,000 ML @ 50 1500 / 1500 mls/hr IV.CONT .Q20H KETTY Rx#: [id number] Ancef Inj 2,000 MG In NS Inj 80 100 / 100 100 / 100 ML @ 200 mls/hr IV.SIG Q8H KETTY Rx#:[id number] Oral 240 / 240 Output: Urine 600 / 600 Other: Date of Last Bowel Movement 18 12/09/17 Narrative: RLE: dressings clean and dry. intact. NVI. + CKS - Urinary Catheter Management Condom Cath placed during this visit: yes Reason for continuing: Hourly intake/output Insertion date: 12/10/17 Insertion time: 08:26 Indwelling Urethral Catheter Cath placed during this visit: yes Reason for continuing: Severe pressure ulcer/wound Insertion date: 12/10/17 Insertion time: 08:26 Results - Labs CBC & Chem 7: 12/11/17 03:46 12/11/17 03:46 Assessment and Plan - Assessment and Plan 1) Right hip hemiarthroplasty - POD 2 -WBAT -posterior hip precautions -knee brace while in bed -daily dressing changes with primapore/coverderm. begin adding bacitracin on POD 10 -DVT prophylaxis -CM for DC planning --> SNF -ortho surgeries complete -follow up with [facility] or [facility] in 2 weeks [employer] Prescription Drug Monitoring Database has been queried and verified prior to prescribing the controlled substance. Acute pain exception. This patient has normal, predicted, physiological, and time limited response to an adverse mechanical stimulus associated with surgery, trauma, or acute illness as described in my notes. There is a lack of alternative treatment options other than to include the prescribed narcotic treatment for this condition.
[2017-12-12 09:14] VITALS: BP 139/63; PULSE 67; RESP 16; TEMP 97.9
[2017-12-12] MEDS: Senna/Docusate Sodium 8.6/50 MG Tablet PO SCH (10:00)
[2017-12-12] MEDS: Calcium/Vitamin D 250/125 MG Tablet PO SCH (10:03)
[2017-12-12] MEDS: hydroCHLOROthiazide 25 MG Tablet PO SCH (10:04)
[2017-12-12] MEDS: Enoxaparin Inj 40 MG/0.4 ML Syringe SQ SCH (10:04)
[2017-12-12] MEDS: Metoprolol Tartrate 25 MG Tablet PO SCH (10:05)
[2017-12-12] MEDS: Ferrous Sulfate 325 MG Tablet PO SCH (10:07)
[2017-12-12] MEDS: Latanoprost 0.005% Opth Drops 2.5 ML Bottle EACH EYE SCH (10:08)
[2017-12-12] MEDS: Ascorbic Acid 500 MG Tablet PO SCH (10:08)
[2017-12-12 11:16] VITALS: O2SAT 99
--- NOTE | 2017-12-12 11:51 | P.PNIM ---
Subjective Interval history: Reports that he is having some dry cough and suctioning postnasal drip of phlegm in his throat. He does not feel short of breath. He has no complaint of chest pain. He understands he has to continue with rehab. His is concerned he is not eating and having poor appetite. Physical Exam Vital signs: Vital Signs 12/11/17 12:00 12/11/17 16:00 12/11/17 16:35 Temperature 98.0 F 98.3 F Pulse Rate 67 65 Respiratory Rate 12 12 Blood Pressure 100/57 L 119/56 L Pulse Oximetry 97 100 97 12/11/17 20:00 12/12/17 00:00 12/12/17 04:00 Temperature 97.8 F 97.7 F 97.7 F Pulse Rate 73 73 62 Respiratory Rate 18 20 20 Blood Pressure 120/59 L 119/55 L 114/57 L Pulse Oximetry 99 97 99 12/12/17 08:00 12/12/17 11:15 Temperature 97.9 F Pulse Rate 67 Respiratory Rate 16 Blood Pressure 139/63 Pulse Oximetry 93 L 99 Intake & Output 12/11/17 12/12/17 12/12/17 18:59 06:59 18:59 Intake Total 1840 / 1840 480 / 480 240 / 240 Balance 1840 / 1840 480 / 480 240 / 240 Intake: IV 1600 / 1600 LR 1000 mL Inj 1,000 ML @ 50 1500 / 1500 mls/hr IV.CONT .Q20H KETTY Rx#: [id number] Ancef Inj 2,000 MG In NS Inj 80 100 / 100 ML @ 200 mls/hr IV.SIG Q8H KETTY Rx#:[id number] Oral 240 / 240 480 / 480 240 / 240 Other: # Voids 2 Date of Last Bowel Movement 12/09/17 12/09/17 12/09/17 Narrative: GENERAL: This is a well-nourished, well-developed patient, in no apparent distress. NECK: C-collar in place CARDIOVASCULAR: Regular rate and rhythm RESPIRATORY: Left base of the lung with crackles GASTROINTESTINAL: Abdomen soft, non-tender, nondistended. Normal active bowel sounds MUSCULOSKELETAL: Right hip with bandage clean dry intact NEURO: Alert & Oriented x3 to person, place, time Moves all ext x4 - Urinary Catheter Management Condom Cath placed during this visit: yes Reason for continuing: Hourly intake/output Insertion date: 12/10/17 Insertion time: : Indwelling Urethral Catheter Cath placed during this visit: yes, but has since been removed by the nurse Reason for continuing: Decision to DC catheter Insertion date: 12/10/17 Insertion time: Removal date: 12/11/17 Removal time: 11:00 Results - Labs CBC & Chem 7: 12/11/17 03:46 12/11/17 03:46 Assessment and Plan - Plan 87-year-old white male on trauma service after he sustained a fall with C6 fracture and right femur fracture Continue current management. 1. Status post fall with secondary Horizontally oriented comminuted fracture extending on the superior aspect of the C6 vertebral body, disruption of the anterior longitudinal ligament and interspinous ligament injury, at this time Neurosurgery specialist Continue c-collar and continue conservative treatment per neurosurgery and pain control and physical therapy. 2. Right femur fracturestatus post operative day #2 right hip bipolar hemiarthroplasty 3. Hypothyroidism to continue Synthroid 4. Atrial Fibrillation - Warfarin at this time on hold due to procedure, rate is controlled, will restarted low-dose metoprolol 5. Hyperlipidemia continue Home statin 6. Hypokalemia replaced and following. 7. DVT prophylaxis with SCDs on Lovenox 8. Severe protein calorie malnutritioncontinue with Ensure and dietary consultation. Will add low-dose Marinol 9. Rule aspiration with continue oxygen supportencourage incentive spirometry use check chest x-ray to rule out pneumonia.
--- NOTE | 2017-12-12 18:46 | P.DS ---
Date of admission: 12/07/17 01:57 Primary care physician: PROVIDER NON STAFF Brief History from admission: S/P Fall DS: Diagnosis - Discharge Diagnosis (1) C6 cervical fracture Status: Acute (2) Closed hip fracture Status: Acute DS: Medications - Discharge Medications Prescriptions: hydrocodone-acetaminophen [[place]] 1 tab PO Q4H #40 tab DS: Summary Hospital Course: [place]:Fell from standing position, ? LOC. was unable to pick him up but left him on the ground for a significant amount of time. Trauma transfer. Takes coumadin at home, INR 5.1. INJURIES: C6 fx (non-op) RIGHT femur fx PMHx: Hypothyroidism, HTN, HLD, Afib, cataracts, glaucoma 12/10: RIGHT hip cemented bipolar hemiarthroplasty C6 fx Neurosurgery consulted, F/U outpatient Nonoperative management Pain control Bowel regimen OOB-PT and OT ordered Maintain [place] J Bowel regimen Lovenox RIGHT femur fx Orthopedics consulted, F/U outpatient 12/10: RIGHT hip cemented bipolar hemiarthroplasty Supportive care Pain control Bowel regimen OOB-PT and OT ordered WBAT RLE Eliquis Supratherapeutic INR 12/08: Vitamin K 2, FFP 2 units INR 1.3 Stop Coumadin- risks outweigh benefits Eliquis 2.5mg BID F/U with Implementation Manager after DC Hospitalist consulted for medical management Pressure ulcers instrument operator consult Wound care orders per recommendations F/U with PCP in 1 week Plan of care discussed with patient and RN at bedside. Collaborating Trauma MD agrees with plan. Case management consulted to assist with discharge planning. Patient is clear from Trauma surgery standpoint to safely DC to [place] rehab - Time Spent with Patient Total time spent providing and/or coordinating discharge services: Greater than 30 minutes - Quality: VTE Deep Vein Thrombosis/Pulmonary Embolism Present on Admission: No Exam Vital signs: Vital Signs 12/11/17 20:00 12/12/17 00:00 12/12/17 04:00 Temperature 97.8 F 97.7 F 97.7 F Pulse Rate 73 73 62 Respiratory Rate 18 20 20 Blood Pressure 120/59 L 119/55 L 114/57 L Pulse Oximetry 99 97 99 12/12/17 08:00 12/12/17 11:15 Temperature 97.9 F Pulse Rate 67 Respiratory Rate 16 Blood Pressure 139/63 Pulse Oximetry 93 L 99 Intake & Output 12/11/17 12/12/17 12/12/17 18:59 06:59 18:59 Intake Total 1840 / 1840 480 / 480 240 / 240 Balance 1840 / 1840 480 / 480 240 / 240 Intake: IV 1600 / 1600 LR 1000 mL Inj 1,000 ML @ 50 1500 / 1500 mls/hr IV.CONT .Q20H KETTY Rx#: [id number] Ancef Inj 2,000 MG In NS Inj 80 100 / 100 ML @ 200 mls/hr IV.SIG Q8H KETTY Rx#:[id number] Oral 240 / 240 480 / 480 240 / 240 Other: # Voids 2 Date of Last Bowel Movement 12/09/17 12/09/17 12/09/17 Narrative: GENERAL: 87 year old elderly male lying in bed. SKIN: Warm and dry. HEAD:Normocephalic. ENT: No nasal bleeding or discharge. Mucous membranes pink and moist. NECK: Trachea midline. No JVD. [place] collar. CARDIOVASCULAR: Regular rate and rhythm. RESPIRATORY: No accessory muscle use. Clear and diminished to auscultation. Breath sounds equal bilaterally. GASTROINTESTINAL: Abdomen soft, non-tender, nondistended. + BS MUSCULOSKELETAL: Extremities without cyanosis, +2 BLE edema. MAEW, + perfused NEUROLOGICAL: Awake and alert. Normal speech. Results Procedures completed during hospitalization: 12/10: RIGHT hip cemented bipolar hemiarthroplasty - Impressions ITS Impressions Hip X-Ray 12/10/17 09:44 CONCLUSION: Appropriate postoperative appearance of the right hip status post total arthroplasty. Discharge Plan - Discharge Disposition Patient Disposition: [facility] Inpatient - Discharge Condition Condition: Stable - Discharge Order Discharge Orders: Discharge Order (Routine); Ordered 12/11/17 Ordered By: Maci Omer Orthopedic Clear for Discharge (Routine); Ordered 12/12/17 Ordered By: Soren Vargas - Physicians Team Primary Care Provider: NON STAFF,PROVIDER Attending Provider: Jason Chavez Other Providers: ; Willie Bateman MD ; Rudi Ortez MD ; Johann Silverman MD ; [employer] [facility] ; Kaleb Pang MD ; Farida Godinez ARNP ; Nba Swain MD ; Terra Booker MD ; Jason Chavez MD ; Maci Omer ARNP ; Shay Vincent MD ; Fredrick Pena MD ; Jez Camilo MD ; Radha Fermin MD
[2017-12-12] MEDS ORDERED: DRONABINOL 2.5 MG CAPSULE PO SCH (21:00)
--- NOTE | 2017-12-12 22:40 | XR ---
EXAM DATE: 12/12/2017 2:55 PM EDT AGE/SEX: 87 years / Male INDICATIONS: Cough. CLINICAL DATA: This is the patient's subsequent encounter. Patient reports that signs and symptoms h ave been present for 3 days and indicates a pain score of 0/10. MEDICAL/SURGICAL HISTORY: Hypertension. None. COMPARISON: [facility] [place] 1V SINGLE AP, 12/07/2017. . FINDINGS: Mild basilar airspace disease. Small bilateral pleural effusions. Heart size enlarged. No pneumothora x. CONCLUSION: Mild basilar airspace disease and small pleural effusions. No pneumothorax. Cardiomegaly. Differentia l diagnosis includes pneumonia and edema. Basilar airspace disease has increased since December 07. Electronically signed by: Rafy Gimenez MD 12/12/2017 3:05 PM EDT
== END 2017-12-12 11:56 ==
LOC: NEPC 23:59 → NEDA 12-07 01:57 → N03 12-07 03:08 → N06 12-09 19:31
PROVIDERS: ADMIT Surgery; ATTEND Surgery